=== PATIENT | female | born 1940 | race Caucasian/White ===

== ENCOUNTER 2017-12-10 13:48 | Inpatient (IN) | payer OTHER ==
[~2017-12-10] VITALS: Ht 149.9 cm; Wt 56.7 kg
[~2017-12-10 13:48] MED LIST: ALLEGRA ALLERG180 MG; AMBIEN 10 MG TA10 MG; AMBIEN 10 MG TA10 MG PO; ASPIRIN EC81 M1 PO; BENTYL 10 MG CA10 MG PO; CALCIUM; CALCIUM 500 +1 EAC5 PO; CARVEDILOL3.125 MG PO; CEFTIN 250 MG250 MG PO; DESYREL50 MG; DESYREL50 MG PO; FENOFIBRATE160 MG; FENOFIBRATE160 MG PO; FISH OIL 1,0001 EAC5 PO; FISHOIL; GABAPENTIN100 MG; GABAPENTIN100 MG PO; GLUCOPHAGE XR500 MG; HYDROCODON-ACE1 EAC7 PO; IRON325 PO; LASIX 40 MG TAB40 M1 PO; LISINOPRIL10 MG PO; LISINOPRIL2.5 MG PO; LISINOPRIL5 MG PO; METOPROLOL SUCC25 M1; MINIPRIN81 MG; MOBIC15 MG; NITROSTAT0.4 MG SL; NORCO 5-325 TA1 EACH; OMEPRAZOLE20 M2; OXYCODONE HCL-1 EAC1; PLAVIX 75 MG TA75 M1 PO; PRISTIQ100 MG PO; PRISTIQ50 MG; PROTONIX40 M2 PO; RANEXA500 MG PO; REMIFEMIN; TRAZODONE HCL100 MG PO; VITAMIN B-12100 MC1; ZOCOR 10 MG TAB10 MG; ZOCOR 10 MG TAB10 MG PO; ZYPREXA5 MG PO
[2017-12-10 14:07] VITALS: BP 184/60
[2017-12-10] MEDS ORDERED: MINOCIN100 MG PO (14:12)
[2017-12-10] MEDS ORDERED: NORVASC5 MG PO (14:20)
[2017-12-10] MEDS ORDERED: LASIX 20 MG TAB20 MG PO (14:23)
[2017-12-10] MEDS ORDERED: POTASSIUM20 PO (14:25)
[2017-12-10] MEDS ORDERED: NAPROSYN500 MG PO (14:26)
[2017-12-10] MEDS ORDERED: MUPIROCIN22 GM TOP (14:27)
[2017-12-10] MEDS ORDERED: MAGOX 400400 MG PO (14:29)
[2017-12-10 14:40] LABS: ABSOLUTE EOSINOPHILS 0.2 thou/uL (0.0-0.7); ABSOLUTE LYMPHOCYTES 1.7 thou/uL (0.8-5.3); ABSOLUTE MONOCYTES 0.4 thou/uL (0.0-1.2); ABSOLUTE NEUTROPHILS 2.1 thou/uL (1.6-8.1); EOSINOPHILS 3.5 %; HEMATOCRIT 33.5 % (37.0-47.0); HEMOGLOBIN 11.4 gm/dL (12.0-15.0); LYMPHOCYTES 38.6 %; MCH 32.7 pg (26.0-34.0); MPV 8.5 fl. (7.2-11.1); NUCLEATED RBCS 0 /100WBC; PLATELET COUNT* 186 thou/uL (150-400); POLYS 47.9 %; RBC 3.49 mil/uL (4.20-5.00); RDW-CV 13.9 % (10.5-14.5); WBC 4.4 thou/uL (4.0-11.0)
[2017-12-10 14:44] LABS: URINE BILIRUBIN NEGATIVE (Negative); URINE BLOOD TRACE (Negative); URINE CLARITY CLEAR; URINE COLOR YELLOW; URINE GLUCOSE-RANDOM NEGATIVE (Negative); URINE KETONES NEGATIVE (Negative); URINE LEUKOCYTES 3+ (Negative); URINE NITRITE POSITIVE (Negative); URINE PROTEIN NEGATIVE (Negative); URINE UROBILINOGEN 0.2 E.U./dl (0.2-1.0)
[2017-12-10 14:52] LABS: BACTERIA >30 Many /HPF (None Seen); CASTS None Seen /LPF (None Seen); CRYSTALS None Seen /LPF (None Seen); SQUAMOUS 0-3 Few /LPF (0-3); URINE RBC None Seen /HPF (0-2); URINE WBC >25 Many /HPF (0-5)
[2017-12-10 14:53] LABS: CALCIUM 8.9 mg/dL (8.5-10.1); CREATININE 1.6 mg/dL (0.6-1.3); POTASSIUM 4.4 mmol/L (3.5-5.1)
[2017-12-10 14:57] LABS: ALBUMIN 2.9 g/dL (3.4-5.0); TOTAL BILIRUBIN 0.7 mg/dL (<0.1-1.0); TOTAL PROTEIN 6.4 g/dL (6.4-8.2)
[2017-12-10 15:29] VITALS: BP 160/40
[2017-12-10 16:48] VITALS: BP 177/71
--- NOTE | 2017-12-10 18:00 | NUR ---
PATIENT ADMITTED TO ROOM 214 FROM ER. ALERT AND ORIENTED 4. BLE'S RED/SWOLLEN. WOUND CARE CONS. IV ABX INFUSING PER ORDERS. PHOTOS TAKEN OF BLE'S AND REDDENDED AREA TO BUTTOCKS PER PROTOCOL. FALL RISK PROTOCOL IN PLACE. CALL LIGHT WITHIN REACH, WILL CONTINUE TO MONITOR.
[2017-12-10 19:58] VITALS: BP 172/64
[2017-12-10 23:45] VITALS: BP 112/49
--- NOTE | 2017-12-11 05:16 | NUR ---
AAOX4, PT DENIES C/O PAIN SOB OR DISCOMFORT. RESP REG AND UNLABORED SKIN W/D NOTED, NO ACUTE DISTRESS NOTED. VSS AND NO ACUTE CHANGES DURING SHIFT. PT CONTINUE TO HAVE FREQUENCY OF URINATION BUT HAS IMPROVED DURING SHIFT.. WILL CONTINUE TO MONITOR
[2017-12-11 07:30] VITALS: BP 172/66
--- NOTE | 2017-12-11 12:28 | NUR ---
WOUND CARE NOTE: CONSULT RECEIVED FOR BLE CELLULITIS, R. BUTTOCK WOUND. PATIENT STATES WOUND TO BUTTOCK COMES AND GOES. SHE STATES SHE WAS TOLD IT WAS FROM SITTING TOO MUCH. DRY, FLAKEY AREA NOTED TO THE RIGHT BUTTOCK, BUT IT IS INTACT, APPEARS TO BE HEALED. SACROCOCCYGEAL REGION IS RED, DRY, BLANCHABLE. PATIENT WEARS DEPENDS AT HOME AND IS CURRENTLY WEARING A BRIEF. APPLIED BARRIER OINTMENT. PATIENT PRESENTS WITH REDNESS CIRCUMFIRENTIALLY TO BILATERAL LOWER EXTREMITIES JUST SUPERIOR TO THE GAITER AREA. NO BLISTERS OR WOUNDS NOTED. AREA IS NOT HOT TO TOUCH. STATES SHE HAS BEEN DEALING WITH THIS FOR A MONTH. PATIENT DOES HAVE WHAT APPEARS TO BE PETECHIAL TYPE RASH TO TOES, BILATERALLY. APPLIED LOTION TO LEGS. APPLIED DOUBLE LAYER TUBIGRIP SIZE E BILATERALLY. PATIENT TOLERATED DRESSING CHANGES WELL. EDUCATED PATIENT ON NOT USING BRIEFS TO ASSIST WITH RESOLVING REDNESS, COMMUNICATED UNDERSTANDING, BUT CONTINUES TO WEAR BRIEFS. EDUCATED PATIENT ON USING BARRIER OINTMENT AFTER USING BATHROOM, COMMUNICATED UNDERSTANDING, ALLOWED ME TO PLACE SOME. EDUCATED PATIENT ON COMPRESSION THERAPY, AND WHEN TO NOTIFY NURSE IF THEY ARE TOO TIGHT. EDUCATED PATIENT TO KEEP LEGS ELEVATED TO ASSIST WITH DECREASING SWELLING, COMMUNICATED UNDERSTANDING. RECOMMEND ELEVATE BLE COMPRESSION THERAPY ENCOURAGE GOOD NUTRITION/HYDRATION SMOKING CESSATION TIGHT BLOOD GLUCOSE CONTROL
--- NOTE | 2017-12-11 14:19 | NUR ---
INITIAL ASSESSMENT: Pt evaluated for d/c planning needs. Reviewed chart and spoke with nurse and pt. Pt is alert and oriented. Pt lives in independent apartment at the [facility]. Pt was independent with ADL's and used walker for ambulation. Pt goes to central dining room for her meals. Pt said she has not had home health in the past. Pt plans on returning home on d/c from hospital. Will remain available to assist as needed.
[2017-12-11 15:48] VITALS: BP 150/47
--- NOTE | 2017-12-11 16:17 | NUR ---
PATIENT PLACED IN CONTACT PRECAUTIONS D/T POSITIVE MRSA NARES TEST AT DERMATOLOGY OFFICE. NO COMPLAINTS OF PAIN. UP TO CHAIR WITH ASSISTANCE FOR MEALS. IV SL, SCHED ABX INFUSED. DR. MCCULLOUGH PLACED PATIENT BACK ON IV VANCOMYCIN AND PO BACTRIM. PATIENTS SON BROUGHT IN PATIENTS HOME PRISTIQ, CHECKED WITH PHARMACY. PATIENT INCONTINENT AT TIMES TODAY OTHERWISE VOIDING PER TOILET. WOUND NURSE SAW PATIENT, TUBAGRIPS PLACED TO RINA LE'S.
[2017-12-11 19:40] VITALS: BP 161/60
[2017-12-12 03:42] VITALS: BP 134/54
--- NOTE | 2017-12-12 05:27 | NUR ---
AAX4 RESP REG AND UNLABORED SKIN W/D NO ACUTE DISTRESS NOTED. PT STATED SHE WAS FEELING SOME BETTER. PT NOT HAVING MUCH URGENCY THIS SHIFT. PT STATED SHE THINGS SHE IS GETTING BETTER. VSS AND NO ACUTE CHANGES DURING SHIFT WILL CONTINUE TO MONITOR
[2017-12-12 08:15] VITALS: BP 189/66
--- NOTE | 2017-12-12 08:35 | NUR ---
ASSUMED PT. CARE AND RECEIVED REPORT AT 0730. PT A/OX WITH SOME MINOR CONFUSION NOTED. VSS, MED/SURG STATUS. ON RA @ 93% WITH CRACKLES NOTED THROUGH OUT. PT. DENIES SOB OR DIFFICULTY BREATHING. FULL ASSESSMENT COMPLETETED, REFER TO CHARTING. PT. UP TO VOID, HOWEVER WAS FULLY INCONT. IN BRIEF PRIOR TO BSC. UP TO CHAIR THERE AFTER, CALL LIGHT AND FALL PRECAUTIONS IN PLACE. WILL CONTINUE WITH PLAN OF CARE.
[2017-12-12 10:30] LABS: ABSOLUTE EOSINOPHILS 0.2 thou/uL (0.0-0.7); ABSOLUTE LYMPHOCYTES 1.3 thou/uL (0.8-5.3); ABSOLUTE MONOCYTES 0.4 thou/uL (0.0-1.2); ABSOLUTE NEUTROPHILS 2.9 thou/uL (1.6-8.1); BASOPHILS 0.9 %; EOSINOPHILS 3.7 %; HEMATOCRIT 34.8 % (37.0-47.0); HEMOGLOBIN 11.8 gm/dL (12.0-15.0); LYMPHOCYTES 27.2 %; MCH 32.5 pg (26.0-34.0); MCHC 33.8 g/dL (28.0-37.0); MCV 96.1 fL (80.0-100.0); MONOCYTES 8.5 %; MPV 8.7 fl. (7.2-11.1); NUCLEATED RBCS 0 /100WBC; PLATELET COUNT* 163 thou/uL (150-400); POLYS 59.7 %; RBC 3.62 mil/uL (4.20-5.00); RDW-CV 13.8 % (10.5-14.5); WBC 4.8 thou/uL (4.0-11.0)
[2017-12-12 10:38] LABS: CALCIUM 8.8 mg/dL (8.5-10.1); CREATININE 1.5 mg/dL (0.6-1.3); POTASSIUM 4.2 mmol/L (3.5-5.1)
[2017-12-12 15:51] VITALS: BP 138/33
--- NOTE | 2017-12-12 18:36 | NUR ---
PT. STABLE THROUGH OUT SHIFT. UP IN THE RECLINER GOOD PORTION OF THE DAY. TUBIGRIP REMOVED AND CARE GIVEN PER ORDERS. PT. STATES SHE FEELS THE SWELLING AND REDNESS HAS IMPROVED GREATLY. NO C/O PAIN. PT. DOES GET CONFUSED AT TIMES, AND DOES NOT ALWAYS USE CALL LIGHT APPROPRIATELY. HOURLY ROUNDING COMPLETED THROUGH OUT THE DAY FOR PT. SAFETY.
[2017-12-12 19:25] VITALS: BP 162/71
[2017-12-12 22:42] VITALS: BP 132/53
--- NOTE | 2017-12-13 04:48 | NUR ---
PT AAOX4, DRE CUTE DISTRESS NOTED. RESP REG AND UNALBORED SKIN W/D, NO C/O PAINOR DISCOMFORT. DRESSINGS TOLEGS INTACT. PT SAT IN CHIAR THE FIRST PART OF SHIFT AND TOLERATED WELL. VSS AND NO ACUTE CHANGES DURING SHIFT, WILL CONTINUE TO MONITOR
[2017-12-13 08:42] VITALS: BP 154/62
--- NOTE | 2017-12-13 08:43 | NUR ---
ASSUMED PT. CARE AND RECEIVED REPORT AT 0730. PT A/OX4 WITH SOME NOTED CONFUSION, VSS, PT. MED/SURG STATUS. ON RA @ 94%. RINA. LE TUBIGRIP IN PLACE. FULL ASSESSMENT COMPLETED, REFER TO CHARTING. PT. DENIES PAIN, BUT STATES HER STOMACH ACHES. PT. ASSISTED TO BATHROOM-INCONT- AND THEN TO CHAIR FOR BREAKFAST. CALL LIGHT IN REACH, FALL PRECAUTIONS IN PLACE. WILL CONTINUE WITH PLAN OF CARE.
[2017-12-13] MEDS ORDERED: MINOCIN100 MG PO (12:45)
[2017-12-13 13:46] VITALS: BP 154/62
--- NOTE | 2017-12-13 14:32 | NUR ---
DC ORDERS RECEIVED. IV AND MONITOR REMOVED. DC INSTRUCTIONS, SCRIPTS AND CARENOTES DISUCUSSED WITH PT. AND SON. SCRIPT FAXED TO PATIENTS PHARMACY PER FAMILY REQUEST. ALL QUESTIONS ANSWERED. PT. LEFT VIA WHEELCHAIR TO RETURN HOME IN PERSONAL VEHICLE.
--- NOTE | 2017-12-14 07:52 | CON ---
[address] [address] CONSULTATION Name: BETITOSHAZIA Hermilo Room: [address] IN M.R.#: [id number] Admission: 12/10/17 Attend Phys: Francis Chen Discharge: 12/13/17 Date of : 40 Report #: [id number] THIS REPORT FOR: //name// CC: Zenaida Sherwood DATE OF SERVICE: 12/11/2017 INFECTIOUS DISEASE CONSULTATION ATTENDING PHYSICIAN: Sandoval Sherwood DO. REASON FOR EVALUATION: Bilateral lower extremity inflammatory eruptions, possible component of skin and soft tissue infection with cellulitis. HISTORY OF PRESENT ILLNESS: Chart reviewed, the patient examined. The patient is a 77-year-old white female with a known vasculopathy, has fairly significant medical disease, history of diabetes mellitus who developed a red rash, though primarily more pruritic than painful over the bilateral lower extremities in the last couple of months. She did have episodic multiple bullous lesions, drained serous type fluid by her description. She was seen by Dermatology who felt that there was an infectious component, was treated with antibiotics initially, seemed to have improved briefly. She has had 3 courses, the latter two have not been particularly effective from her standpoint. She was referred for admission for parenteral therapy. Denies fever. Appetite has been good. No pulmonary or gastrointestinal related complaints. ALLERGIES: LISTED TO WOOL, PENICILLIN, OXYCODONE, CODEINE AND CIPROFLOXACIN. CURRENT MEDICATIONS: Include magnesium, amlodipine, lisinopril, clopidogrel, fenofibrate, aspirin, gabapentin, minocycline, trazodone, metolazone, carvedilol, dicyclomine, atorvastatin, doxycycline, naproxen and furosemide. PAST MEDICAL HISTORY: History of diabetes mellitus, has vasculopathy, known coronary artery disease, previous stentings, hypercholesterolemia, history of hypertension, multiple surgeries including appendectomy, hysterectomy, cholecystectomy, breast augmentation, liposuction, blepharoplasty. SOCIAL HISTORY: History of smoking, now most recently e-cigarettes. Occasional ethanol. FAMILY HISTORY: Noncontributory. REVIEW OF SYSTEMS: As above. PHYSICAL EXAMINATION: [place] [address] CONSULTATION Name: SHAZIA CISSE Room: [address]#: [id number] Admission: 12/10/17 Attend Phys: Francis Chen Discharge: 12/13/17 Date of : 40 Report #: [id number] GENERAL: She is pleasant, alert, cooperative. She appears somewhat chronically ill, undernourished. She is in mild distress. VITAL SIGNS: Temperature 97.8, pulse 59, respirations 16, blood pressure 172/66. SKIN: Warm, dry, no rashes. HEENT: Unremarkable. NECK: Supple. LUNGS: Somewhat diminished overall. He has got some crackles at the bases. HEART: Regular. Borderline bradycardic, has a soft systolic murmur. ABDOMEN: Soft, nontender. EXTREMITIES: Bilateral lower extremities have changes suggestive of chronic venous stasis insufficiency with dermatitis with some dermopathy that may be the basis of ischemia as well. Distal pulses are diminished, somewhat of doughy edema at this point. There are no open ulcers. She is not overtly tender. GENITOURINARY: Deferred. RECTAL: Deferred. LABORATORY DATA: Blood cultures sterile thus far. Lactic acid 1.0. Electrolytes: Sodium 132, potassium 4.4, chloride 100, bicarbonate is 28, BUN and creatinine 33 and 1.6, anion gap of 4, glucose of 105. LFTs are unremarkable. Albumin of 2.9, total protein 6.4. Estimated GFR of 31. Urinalysis, greater than 25 white cells, greater than 30 bacteria. Chest x-ray, no acute process. CBC: White count of 4.4, H and H 11.4 and 33.5, platelets of 186. ASSESSMENT: Bilateral lower extremities inflammatory eruption. This may well be primarily venous stasis insufficiency, I cannot entirely exclude arterial disease as well. We will check arterial Dopplers, discuss with wound care nurse, we will apply some compression, was encouraged to elevate, we will see if she develops any claudication with that. She does appear to have a urinary tract infection, we will adjust therapy, had been on minocycline most recently. <ELECTRONICALLY SIGNED> By: Julián Landa MD 12/14/17 0752 [id number] [id number] Landa MD /nt
== END 2017-12-13 14:32 | disposition home or self-care (01) | DRG 602 ==
LOC: M.ERS 13:48 → M.TBA-ER 14:12 → M.2W 14:12
PROVIDERS: Emergency Medicine; Internal Medicine Infectious Disease; ADMIT Internal Medicine
DX: L03.115 Cellulitis of right lower limb (principal); N17.0 Acute kidney failure with tubular necrosis; N39.0 Urinary tract infection, site not specified; E44.0 Moderate protein-calorie malnutrition; I25.10 Atherosclerotic heart disease of native coronary artery without angina pectoris; E11.51 Type 2 diabetes mellitus with diabetic peripheral angiopathy without gangrene; I25.5 Ischemic cardiomyopathy; E78.00 Pure hypercholesterolemia, unspecified; F32.9 Major depressive disorder, single episode, unspecified; F17.210 Nicotine dependence, cigarettes, uncomplicated; I87.8 Other specified disorders of veins; Z88.6 Allergy status to analgesic agent; Z88.1 Allergy status to other antibiotic agents; Z88.0 Allergy status to penicillin; Z91.048 Other nonmedicinal substance allergy status; Z79.2 Long term (current) use of antibiotics; Z79.82 Long term (current) use of aspirin; Z79.899 Other long term (current) drug therapy; Z95.5 Presence of coronary angioplasty implant and graft; Z90.49 Acquired absence of other specified parts of digestive tract; Z90.710 Acquired absence of both cervix and uterus

== ENCOUNTER 2017-12-25 18:29 | Inpatient (IN) | payer OTHER ==
[~2017-12-25] VITALS: Ht 149.9 cm; Wt 67.0 kg
[~2017-12-25 18:29] MED LIST changes: +LASIX 20 MG TAB20 MG PO; +MAGOX 400400 MG PO; +MINOCIN100 MG PO; +MUPIROCIN22 GM TOP; +NAPROSYN500 MG PO; +NORVASC5 MG PO; +POTASSIUM20 PO
[2017-12-25 18:43] VITALS: BP 128/49
[2017-12-25 18:55] LABS: ABSOLUTE LYMPHOCYTES 1.4 thou/uL (0.8-5.3); ABSOLUTE MONOCYTES 0.4 thou/uL (0.0-1.2); ABSOLUTE NEUTROPHILS 5.5 thou/uL (1.6-8.1); BASOPHILS 0.5 %; EOSINOPHILS 0.2 %; HEMATOCRIT 35.5 % (37.0-47.0); HEMOGLOBIN 11.8 gm/dL (12.0-15.0); LYMPHOCYTES 18.8 %; MCH 31.8 pg (26.0-34.0); MCHC 33.2 g/dL (28.0-37.0); MCV 95.7 fL (80.0-100.0); MONOCYTES 5.3 %; MPV 10.7 fl. (7.2-11.1); NUCLEATED RBCS 1 /100WBC; PLATELET COUNT* 77 thou/uL (150-400); POLYS 75.2 %; RBC 3.71 mil/uL (4.20-5.00); RDW-CV 14.6 % (10.5-14.5); WBC 7.4 thou/uL (4.0-11.0)
[2017-12-25 19:07] LABS: INR 1.4; PROTIME 13.3 Seconds (9.20-11.50)
[2017-12-25 19:09] LABS: ANION GAP 8 mmol/L (7-16); BUN 41 mg/dL (7-18); CALCIUM 9.3 mg/dL (8.5-10.1); CHLORIDE 100 mmol/L (98-107); CO2 26 mmol/L (21-32); CREATININE 2.7 mg/dL (0.6-1.3); GLUCOSE 106 mg/dL (70-99); POTASSIUM 5.6 mmol/L (3.5-5.1); SODIUM 134 mmol/L (136-145)
[2017-12-25 19:20] LABS: ALBUMIN 2.9 g/dL (3.4-5.0); ALKALINE PHOSPHATASE 125 U/L (46-116); LIPASE 108 U/L (73-393); MAGNESIUM 2.5 mg/dL (1.8-2.4); NT-PRO BRAIN NAT PEPTIDE 1779 pg/mL (<300); SGOT 289 U/L (15-37); SGPT 137 U/L (30-65); TOTAL BILIRUBIN 3.8 mg/dL (<0.1-1.0); TOTAL PROTEIN 6.4 g/dL (6.4-8.2); TROPONIN-I LEVEL <0.06 ng/mL (<0.06)
[2017-12-25 20:31] LABS: CALCIUM 9.2 mg/dL (8.5-10.1); CREATININE 2.6 mg/dL (0.6-1.3); POTASSIUM 5.7 mmol/L (3.5-5.1)
[2017-12-25 20:35] LABS: ALBUMIN 2.3 g/dL (3.4-5.0); TOTAL BILIRUBIN 3.8 mg/dL (<0.1-1.0); TOTAL PROTEIN 6.2 g/dL (6.4-8.2)
[2017-12-25 22:12] VITALS: BP 147/60
[2017-12-25 22:30] VITALS: BP 147/72
[2017-12-25 23:00] VITALS: BP 117/40
[2017-12-25 23:04] LABS: URINE BLOOD 2+ (Negative); URINE CLARITY CLEAR; URINE COLOR DARK YELLOW; URINE GLUCOSE-RANDOM NEGATIVE (Negative); URINE KETONES NEGATIVE (Negative); URINE LEUKOCYTES-REFLEX TRACE (Negative); URINE PROTEIN TRACE (Negative); URINE UROBILINOGEN 0.2 E.U./dl (0.2-1.0)
[2017-12-25 23:06] LABS: ICTOTEST (BILI CONFIRMATORY) Negative (Negative); URINE BILIRUBIN 1+ (Negative); URINE NITRITE-REFLEX POSITIVE (Negative)
[2017-12-25 23:29] LABS: CASTS None Seen /LPF (None Seen); SQUAMOUS 0-3 Few /LPF (0-3)
[2017-12-25 23:30] LABS: BACTERIA-REFLEX 1-9 Few /HPF (None Seen); CRYSTALS None Seen /LPF (None Seen); URINE RBC 3-10 Few /HPF (0-2); URINE WBC-REFLEX 6-15 Few /HPF (0-5)
[2017-12-26] VITALS (14 sets, daily range): BP systolic 98–135; BP diastolic 20–58
[2017-12-26 01:56] LABS: ALBUMIN 1.9 g/dL (3.4-5.0); CALCIUM 9.2 mg/dL (8.5-10.1); CREATININE 2.5 mg/dL (0.6-1.3); TOTAL BILIRUBIN 2.8 mg/dL (<0.1-1.0); TOTAL PROTEIN 5.3 g/dL (6.4-8.2)
[2017-12-26 01:59] LABS: POTASSIUM 4.4 mmol/L (3.5-5.1)
[2017-12-26 07:49] LABS: HEMATOCRIT 33.3 % (37.0-47.0); HEMOGLOBIN 11.2 gm/dL (12.0-15.0); MCH 32.5 pg (26.0-34.0); MCHC 33.7 g/dL (28.0-37.0); MCV 96.3 fL (80.0-100.0); RBC 3.45 mil/uL (4.20-5.00); RDW-CV 14.2 % (10.5-14.5); WBC 6.5 thou/uL (4.0-11.0)
[2017-12-26 09:00] LABS: ALBUMIN 2.5 g/dL (3.4-5.0); CALCIUM 9.3 mg/dL (8.5-10.1); CREATININE 2.2 mg/dL (0.6-1.3); POTASSIUM 4.8 mmol/L (3.5-5.1); TOTAL PROTEIN 5.4 g/dL (6.4-8.2)
--- NOTE | 2017-12-26 11:13 | EKG ---
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 RBBB Borderline prolonged KS interval Consider left atrial enlargement Nonspecific intraventricular conduction delay Inferior infarct, age indeterminate possibly acute. Compared to ECG 07/14/2015 09:11:04 Intraventricular conduction delay now present Ventricular premature complex(es) no longer present Myocardial infarct finding still present Electronically Signed On 12-26-2017 11:12:56 CDT by Mauri Almonte [email or web address] <ELECTRONICALLY SIGNED> By: Gely Almonte MD, [facility] 12/26/17 [phone] Gely Almonte MD, [facility] /EPI
[2017-12-27] VITALS (7 sets, daily range): BP systolic 95–143; BP diastolic 28–53
[2017-12-27 02:06] LABS: IgG 903 mg/dL (700-1600)
[2017-12-27 04:42] LABS: ABSOLUTE EOSINOPHILS 0.1 thou/uL (0.0-0.7); ABSOLUTE LYMPHOCYTES 1.2 thou/uL (0.8-5.3); ABSOLUTE MONOCYTES 0.5 thou/uL (0.0-1.2); ABSOLUTE NEUTROPHILS 4.3 thou/uL (1.6-8.1); BASOPHILS 0.4 %; EOSINOPHILS 2.3 %; HEMATOCRIT 30.8 % (37.0-47.0); HEMOGLOBIN 10.2 gm/dL (12.0-15.0); LYMPHOCYTES 19.3 %; MCH 32.1 pg (26.0-34.0); MCHC 33.2 g/dL (28.0-37.0); MCV 96.5 fL (80.0-100.0); MONOCYTES 8.1 %; MPV 11.1 fl. (7.2-11.1); NUCLEATED RBCS 1 /100WBC; PLATELET COUNT* 50 thou/uL (150-400); POLYS 69.9 %; RBC 3.19 mil/uL (4.20-5.00); RDW-CV 14.1 % (10.5-14.5); WBC 6.1 thou/uL (4.0-11.0)
[2017-12-27 05:03] LABS: INR 1.6; PROTIME 15.7 Seconds (9.20-11.50)
[2017-12-27 05:16] LABS: PREALBUMIN 10.9 mg/dL (18.0-35.7)
[2017-12-27 05:26] LABS: ALBUMIN 2.3 g/dL (3.4-5.0); CALCIUM 8.4 mg/dL (8.5-10.1); CREATININE 1.9 mg/dL (0.6-1.3); DIRECT BILIRUBIN 3.1 mg/dL (<0.1-0.3); POTASSIUM 4.5 mmol/L (3.5-5.1); TOTAL BILIRUBIN 3.8 mg/dL (<0.1-1.0); TOTAL PROTEIN 4.9 g/dL (6.4-8.2)
--- NOTE | 2017-12-27 10:38 | EKG ---
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: KATEY : 1940 Requested By: David Gruber Order Number: [id number] Reading MD: Mauri Almonte Measurements Intervals [place] Rate: 64 P: 64 DE: 202 QRS: 33 QRSD: 163 T: -75 QT: 447 QTc: 462 Interpretive Statements Sinus rhythm IVCD Borderline T abnormalities, lateral leads Compared to ECG 12/25/2017 18:33:35 T-wave abnormality now present Right bundle-branch block no longer present Myocardial infarct finding no longer present Electronically Signed On 12-27-2017 10:37:50 CDT by Mauri Almonte [email or web address] <ELECTRONICALLY SIGNED> By: Gely Almonte MD, [facility] 12/27/17 1037 2239 [id number] Gely Almonte MD, [facility] /EPI
--- NOTE | 2017-12-27 13:19 | CON ---
[address] [address] CONSULTATION Name: SHAZIA CISSE Room: [address] IN .R.#: [id number] Admission: 12/25/17 Attend Phys: Francis Chen Discharge: Date of : 40 Report #: [id number] THIS REPORT FOR: //name// CC: Zenaida Sherwood DATE OF SERVICE: 12/26/2017 Renal Consultation Thank you very much asking to see the patient. HISTORY OF PRESENT ILLNESS: The patient is a 77-year-old white female who was admitted to [facility] after falling several times at home. Case was complicated by nausea. She had no fevers or chills. No chest pains or shortness of breath. No vomiting. She has a Vazquez catheter in place. Renal consultation requested for the constellation of combination of hyponatremia and acute kidney injury. PAST MEDICAL HISTORY: 1. Chronic kidney disease stage 3, baseline creatinine 1.1, GFR 49. 2. Hypertension. 3. Diabetes. 4. Hyperlipidemia. 5. Cardiomyopathy with ejection fraction of 35% to 40%. 6. Coronary artery disease with history of stent placement. ALLERGIES: She has allergies to CIPRO, CODEINE, PENICILLIN, WOOL, and OXYCODONE. SOCIAL HISTORY: Negative for tobacco use or alcohol use. FAMILY HISTORY: Negative for kidney disease. CURRENT MEDICATIONS: Trazodone 50 mg at bedtime, olanzapine 5 mg at bedtime, gabapentin 200 mg t.i.d., Ranexa 500 mg b.i.d., dicyclomine 100 mg b.i.d., fenofibrate 160 mg daily, desvenlafaxine 50 mg daily, magnesium 400 mg daily, amlodipine 5 mg daily, lisinopril 5 mg daily, carvedilol 6.25 mg b.i.d., Plavix 75 mg daily, aspirin 81 mg daily, metoclopramide 5 mg as needed. PHYSICAL EXAMINATION: VITAL SIGNS: Blood pressure is 102/45, pulse 68, temperature 36.5. GENERAL: She is awake and alert. Mood and affect appear to be at baseline. NECK: No jugular venous distention. CHEST: Clear. HEART: Regular rate [place] [address] CONSULTATION Name: SHAZIA CISSE Room: [address]#: [id number] Admission: 12/25/17 Attend Phys: Francis Chen Discharge: Date of : 40 Report #: [id number] ABDOMEN: Soft. EXTREMITIES: She has 1 to 2+ lower extremity edema. LABORATORY DATA: Initial sodium was 134. It came down to 129, but now back up to 136, creatinine is 2.2. IMAGING DATA: On CT scan, the right kidney was atrophic. ASSESSMENT AND PLAN: 1. Acute kidney injury. Her creatinine is improved from 2.7 to 2.2 on IV fluids. 2. Hyponatremia. Her sodium level has improved from 129 to 136 on IV fluids. 3. Atrophic right kidney. 4. Hypertension. 5. Diabetes. 6. Hyperlipidemia. 7. Elevated transaminases. Etiology is unclear. 8. Cardiomyopathy with ejection fraction of 35% to 40%. 9. History of coronary artery disease and stent placement. 10. Cellulitis of the lower extremities. PLAN: 1. Continue IV fluids. 2. Await renal ultrasound. 3. Await urine studies. 4. Further recommendations will depend on clinical course. Thank you very much for asking me to see the patient and assist in her care. <ELECTRONICALLY SIGNED> By: Suhas Seymour MD 12/27/17 1319 1351 [id number] Seymour MD /nt
[2017-12-28] VITALS: BP 101/39
[2017-12-28 04:00] VITALS: BP 159/90
[2017-12-28 05:08] LABS: HEMATOCRIT 28.4 % (37.0-47.0); HEMOGLOBIN 9.4 gm/dL (12.0-15.0); MCH 32.2 pg (26.0-34.0); MCV 97.6 fL (80.0-100.0); MPV 11.1 fl. (7.2-11.1); RBC 2.91 mil/uL (4.20-5.00); RDW-CV 14.1 % (10.5-14.5); WBC 6.1 thou/uL (4.0-11.0)
[2017-12-28 05:17] LABS: CALCIUM 8.1 mg/dL (8.5-10.1); MAGNESIUM 2.2 mg/dL (1.8-2.4)
[2017-12-28 08:00] VITALS: BP 131/44
[2017-12-28 11:40] VITALS: BP 104/50
[2017-12-28 16:18] VITALS: BP 113/44
[2017-12-28 20:00] VITALS: BP 114/78; BP 133/51
[2017-12-29] VITALS: BP 118/31
[2017-12-29 00:10] VITALS: BP 142/41
[2017-12-29 05:56] LABS: ALBUMIN 1.9 g/dL (3.4-5.0); CALCIUM 7.7 mg/dL (8.5-10.1); CREATININE 1.6 mg/dL (0.6-1.3); MAGNESIUM 2.5 mg/dL (1.8-2.4); PHOSPHORUS* 2.4 mg/dL (2.5-4.9); POTASSIUM 5.2 mmol/L (3.5-5.1)
[2017-12-29 10:08] LABS: ABSOLUTE BASOPHILS 0.1 thou/uL (0.0-0.2); ABSOLUTE EOSINOPHILS 0.1 thou/uL (0.0-0.7); ABSOLUTE LYMPHOCYTES 1.5 thou/uL (0.8-5.3); ABSOLUTE MONOCYTES 0.6 thou/uL (0.0-1.2); ABSOLUTE NEUTROPHILS 5.1 thou/uL (1.6-8.1); BASOPHILS 0.9 %; EOSINOPHILS 1.7 %; HEMATOCRIT 28.9 % (37.0-47.0); HEMOGLOBIN 9.5 gm/dL (12.0-15.0); LYMPHOCYTES 20.8 %; MCHC 32.8 g/dL (28.0-37.0); MCV 97.7 fL (80.0-100.0); MONOCYTES 7.5 %; MPV 12.4 fl. (7.2-11.1); NUCLEATED RBCS 2 /100WBC; POLYS 69.1 %; RBC 2.96 mil/uL (4.20-5.00); RDW-CV 14.4 % (10.5-14.5); WBC 7.4 thou/uL (4.0-11.0)
[2017-12-29 10:23] LABS: PLATELET COUNT* 42 thou/uL (150-400)
[2017-12-29 13:08] LABS: ANA INTERPRETATION Negative (Negative)
--- NOTE | 2017-12-29 15:16 | 2DMMODE ---
[place] [address] 2 D/M-MODE ECHOCARDIOGRAM Name: SHAZIA CISSE Room: [address] IN [facility]#: [id number] Admission: 12/25/17 Attend Phys: Sandoval Sherwood Discharge: Date of : 40 Date of Service: 12/29/17 1516 Report #: [id number] THIS REPORT FOR: //name// APPROVED REPORT Study performed: 12/29/2017 10:29:25 EXAM: Comprehensive 2D, Doppler, and color-flow Echocardiogram Patient Location: In-Patient Room #: 218 Status: routine BSA: 1.62 HR: 65 bpm BP: 147/32 mmHg Rhythm: NSR Other Information Study Quality: Good Indications Abnormal ECG Pacemaker 2D Dimensions LVEF(%): 48.25 (>50%) IVSd: 12.31 (7-11mm) LVOT Diam: 19.96 (18-24mm) LVDd: 44.31 mm PWd: 10.29 (7-11mm) Ascending Ao: 28.54 (22-36mm) LVDs: 33.62 (25-40mm) Aortic Root: 28.74 mm Cheng's LVEF: 48.25 % Volumes Left Atrial Volume (Systole) LA ESV Index: 33.50 mL/m2 Aortic Valve AoV Peak Tee.: 1.84 m/s AO Peak Gr.: 13.49 mmHg LVOT Max P.80 mmHg AO Mean Gr.: 8.21 mmHg LVOT Mean P.53 mmHg LVOT Max V: 0.84 m/s AO V2 VTI: 44.11 cm LVOT Mean V: 0.58 m/s DELANEY (VTI): 1.53 cm2 LVOT V1 VTI: 21.62 cm AI H[place]: 2.79 m/s2 AI PHT: 363.48 [place] [address] 2 D/M-MODE ECHOCARDIOGRAM Name: SHAZIA CISSE Hermilo Room: [address] IN [facility]#: [id number] Admission: 12/25/17 Attend Phys: Sandoval Sherwood Discharge: Date of : 40 Date of Service: 12/29/17 1516 Report #: [id number] Mitral Valve E/A Ratio: 0.95 MV Decel. Time: 128.46 ms MV E Max Tee.: 0.99 m/s MV PHT: 37.25 ms MVA (PHT): 5.91 cm2 TDI E/Lateral E': 11.00 E/Medial E': 9.90 Medial E' Tee.: 0.10 m/s Lateral E' Tee.: 0.09 m/s Pulmonary Valve PV Peak Tee.: 0.75 m/s PV Peak Gr.: 2.22 mmHg Tricuspid Valve RAP Estimate: 5.00 mmHg TR Peak Gr.: 30.25 mmHg RVSP: 35.25 mmHg PA Pressure: 35.25 mmHg Left Ventricle The left ventricle is normal size. There is normal LV segmental wall motion. There is normal left ventricular wall thickness. Left ventricular systolic function is mildly decreased. LVEF is 45-50%. Grade I - abnormal relaxation pattern. Right Ventricle The right ventricle is normal size. The right ventricular systolic function is normal. Pacemaker lead is present in the right ventricle. Atria The left atrium size is normal. The right atrium size is normal. Aortic Valve Moderate aortic valve sclerosis. Mild aortic regurgitation. Mild aortic stenosis. Mitral Valve Mild mitral annular calcification. Mild mitral regurgitation. No evidence of mitral valve stenosis. Tricuspid Valve The tricuspid valve is normal in structure. Mild to moderate tricuspid regurgitation. [place] [address] 2 D/M-MODE ECHOCARDIOGRAM Name: SHAZIA CISSE Room: [address] IN [facility]#: [id number] Admission: 12/25/17 Attend Phys: Sandoval Sherwood Discharge: Date of : 40 Date of Service: 12/29/17 1516 Report #: [id number] Pulmonic Valve The pulmonary valve is normal in structure. There is no pulmonic valvular regurgitation. Great Vessels The aortic root is normal in size. IVC is normal in size and collapses with >50% inspiration Pericardium There is no pericardial effusion. <Conclusion> The left ventricle is normal size. There is normal left ventricular wall thickness. Left ventricular systolic function is mildly decreased. LVEF is 45-50%. Grade I - abnormal relaxation pattern. The right ventricle is normal size. The left atrium size is normal. Moderate aortic valve sclerosis. Mild aortic regurgitation. Mild aortic stenosis. Mild mitral annular calcification. Mild mitral regurgitation. No evidence of mitral valve stenosis. The tricuspid valve is normal in structure. Mild to moderate tricuspid regurgitation. Mild pulmonary hypertension. IVC is normal in size and collapses with >50% inspiration There is no pericardial effusion. There is normal LV segmental wall motion. <ELECTRONICALLY SIGNED> By: Joe Starr MD, FACC 12/29/17 1516 1516 1516 Joe Starr MD, FACC /INF
[2017-12-29 16:27] VITALS: BP 113/69
[2017-12-29 16:35] VITALS: BP 129/50
[2017-12-29 20:00] VITALS: BP 134/43
[2017-12-30] VITALS: BP 142/56
[2017-12-30 04:53] VITALS: BP 121/42
[2017-12-30 05:38] LABS: HEMOGLOBIN 8.6 gm/dL (12.0-15.0); MCH 32.7 pg (26.0-34.0); MCV 98.9 fL (80.0-100.0); MPV 11.8 fl. (7.2-11.1); RBC 2.63 mil/uL (4.20-5.00); RDW-CV 14.6 % (10.5-14.5); WBC 6.7 thou/uL (4.0-11.0)
[2017-12-30 05:53] LABS: INR 1.7; PROTIME 16.4 Seconds (9.20-11.50)
[2017-12-30 06:16] LABS: ALBUMIN 1.7 g/dL (3.4-5.0); CALCIUM 7.6 mg/dL (8.5-10.1); CREATININE 1.5 mg/dL (0.6-1.3); MAGNESIUM 2.3 mg/dL (1.8-2.4); POTASSIUM 5.3 mmol/L (3.5-5.1); TOTAL BILIRUBIN 4.4 mg/dL (<0.1-1.0); TOTAL PROTEIN 4.1 g/dL (6.4-8.2)
[2017-12-30 08:00] VITALS: BP 142/58
[2017-12-30 12:00] VITALS: BP 156/46
[2017-12-30 16:19] VITALS: BP 162/51
[2017-12-30 20:00] VITALS: BP 155/64
[2017-12-31 05:18] LABS: HEMATOCRIT 22.2 % (37.0-47.0); HEMOGLOBIN 7.2 gm/dL (12.0-15.0); MCH 31.9 pg (26.0-34.0); MCHC 32.3 g/dL (28.0-37.0); MCV 98.6 fL (80.0-100.0); MPV 11.6 fl. (7.2-11.1); RBC 2.25 mil/uL (4.20-5.00); RDW-CV 14.2 % (10.5-14.5); WBC 6.6 thou/uL (4.0-11.0)
[2017-12-31 05:38] LABS: ALBUMIN 1.1 g/dL (3.4-5.0); CALCIUM 7.7 mg/dL (8.5-10.1); CREATININE 1.6 mg/dL (0.6-1.3); MAGNESIUM 2.2 mg/dL (1.8-2.4); TOTAL BILIRUBIN 4.1 mg/dL (<0.1-1.0)
[2017-12-31 05:43] LABS: POTASSIUM 5.5 mmol/L (3.5-5.1)
[2017-12-31 15:06] LABS: HEPATITIS B SURFACE AG Negative (Negative)
[2017-12-31 16:35] VITALS: BP 125/44
[2017-12-31 16:56] LABS: URINE BILIRUBIN NEGATIVE (Negative); URINE BLOOD NEGATIVE (Negative); URINE CLARITY CLEAR; URINE COLOR YELLOW; URINE GLUCOSE-RANDOM NEGATIVE (Negative); URINE KETONES NEGATIVE (Negative); URINE LEUKOCYTES 1+ (Negative); URINE NITRITE NEGATIVE (Negative); URINE PROTEIN NEGATIVE (Negative); URINE SPECIFIC GRAVITY 1.015 (1.005-1.030); URINE UROBILINOGEN 0.2 E.U./dl (0.2-1.0)
[2017-12-31 17:11] LABS: HYALINE CASTS 0-3 Few /LPF (None Seen); MUCUS None Seen strn/LPF (None Seen); SQUAMOUS 0-3 Few /LPF (0-3)
[2017-12-31 17:12] LABS: BACTERIA 1-9 Few /HPF (None Seen); CRYSTALS None Seen /LPF (None Seen); URINE RBC None Seen /HPF (0-2); URINE WBC 0-5 Rare /HPF (0-5)
[2017-12-31 20:00] VITALS: BP 124/52
[2018-01-01] VITALS (7 sets, daily range): BP systolic 102–157; BP diastolic 32–72
[2018-01-01 05:51] LABS: HEMATOCRIT 23.3 % (37.0-47.0); HEMOGLOBIN 7.6 gm/dL (12.0-15.0); MCHC 32.5 g/dL (28.0-37.0); MCV 98.5 fL (80.0-100.0); MPV 11.3 fl. (7.2-11.1); RBC 2.37 mil/uL (4.20-5.00); RDW-CV 14.1 % (10.5-14.5); WBC 9.3 thou/uL (4.0-11.0)
[2018-01-01 06:04] LABS: ALBUMIN 1.8 g/dL (3.4-5.0); CALCIUM 7.8 mg/dL (8.5-10.1); CREATININE 1.7 mg/dL (0.6-1.3); MAGNESIUM 1.9 mg/dL (1.8-2.4); PHOSPHORUS* 2.5 mg/dL (2.5-4.9); POTASSIUM 5.5 mmol/L (3.5-5.1); TOTAL BILIRUBIN 4.5 mg/dL (<0.1-1.0); TOTAL PROTEIN 4.8 g/dL (6.4-8.2)
[2018-01-01 08:11] LABS: MPV 11.2 fl. (7.2-11.1); RDW-CV 13.9 % (10.5-14.5); WBC 8.3 thou/uL (4.0-11.0)
[2018-01-01 08:13] LABS: MCH 31.9 pg (26.0-34.0); MCHC 32.7 g/dL (28.0-37.0); MCV 97.7 fL (80.0-100.0); RBC 2.02 mil/uL (4.20-5.00)
[2018-01-01 08:31] LABS: HEMATOCRIT 19.7 % (37.0-47.0); HEMOGLOBIN 6.4 gm/dL (12.0-15.0)
[2018-01-01 10:42] LABS: APTT 41.3 Seconds (25.0-31.3); INR 1.7; PROTIME 16.2 Seconds (9.20-11.50)
[2018-01-01 16:51] LABS: HEMATOCRIT 23.2 % (37.0-47.0); HEMOGLOBIN 7.8 gm/dL (12.0-15.0); MCH 32.2 pg (26.0-34.0); MCHC 33.6 g/dL (28.0-37.0); MCV 95.9 fL (80.0-100.0); MPV 9.5 fl. (7.2-11.1); NUCLEATED RBCS 2 /100WBC; RBC 2.42 mil/uL (4.20-5.00); RDW-CV 13.5 % (10.5-14.5); WBC 7.7 thou/uL (4.0-11.0)
[2018-01-01 16:53] LABS: PLATELET COUNT* 186 thou/uL (150-400)
[2018-01-01 16:55] LABS: CALCIUM 8.3 mg/dL (8.5-10.1); CREATININE 1.8 mg/dL (0.6-1.3); POTASSIUM 4.2 mmol/L (3.5-5.1)
[2018-01-01 16:57] LABS: APTT 32.7 Seconds (25.0-31.3); INR 1.3; PROTIME 13.1 Seconds (9.20-11.50)
[2018-01-01 17:13] LABS: ABSOLUTE BASOPHILS 0.1 thou/uL (0.0-0.2); ABSOLUTE EOSINOPHILS 0.2 thou/uL (0.0-0.7); ABSOLUTE LYMPHOCYTES 0.8 thou/uL (0.8-5.3); ABSOLUTE MONOCYTES 0.8 thou/uL (0.0-1.2); ABSOLUTE NEUTROPHILS 5.9 thou/uL (1.6-8.1); ATYPICAL LYMPHS 2 %; LARGE PLATELETS FEW
[2018-01-01 17:14] LABS: PLATELET ESTIMATE DECREASED; POLYCHROMASIA 1+
[2018-01-01 17:15] LABS: ANISOCYTOSIS 1+; MACROCYTES 1+
[2018-01-02 00:30] VITALS: BP 143/60
[2018-01-02 04:44] VITALS: BP 146/49
[2018-01-02 05:23] LABS: HEMATOCRIT 20.5 % (37.0-47.0); MCH 32.8 pg (26.0-34.0); MCV 96.4 fL (80.0-100.0); MPV 9.6 fl. (7.2-11.1); RBC 2.13 mil/uL (4.20-5.00); RDW-CV 13.6 % (10.5-14.5); WBC 7.7 thou/uL (4.0-11.0)
[2018-01-02 05:46] LABS: CALCIUM 8.1 mg/dL (8.5-10.1); CREATININE 1.8 mg/dL (0.6-1.3); MAGNESIUM 1.8 mg/dL (1.8-2.4); POTASSIUM 3.8 mmol/L (3.5-5.1)
[2018-01-02 09:33] VITALS: BP 143/50
[2018-01-02 15:45] VITALS: BP 148/55
[2018-01-02 20:30] VITALS: BP 149/59
[2018-01-03 00:03] VITALS: BP 119/43
[2018-01-03 03:58] VITALS: BP 146/48
[2018-01-03 04:40] LABS: HEMATOCRIT 20.9 % (37.0-47.0); MCH 32.7 pg (26.0-34.0); MCHC 33.5 g/dL (28.0-37.0); MCV 97.6 fL (80.0-100.0); MPV 9.4 fl. (7.2-11.1); RBC 2.14 mil/uL (4.20-5.00); RDW-CV 13.5 % (10.5-14.5); WBC 6.2 thou/uL (4.0-11.0)
[2018-01-03 05:16] LABS: ALBUMIN 1.9 g/dL (3.4-5.0); CALCIUM 7.8 mg/dL (8.5-10.1); CREATININE 1.7 mg/dL (0.6-1.3); MAGNESIUM 1.7 mg/dL (1.8-2.4); POTASSIUM 3.4 mmol/L (3.5-5.1); TOTAL BILIRUBIN 2.5 mg/dL (<0.1-1.0); TOTAL PROTEIN 4.4 g/dL (6.4-8.2)
[2018-01-03 10:06] VITALS: BP 93/80
[2018-01-03 14:57] LABS: CALCIUM 7.8 mg/dL (8.5-10.1); CREATININE 1.6 mg/dL (0.6-1.3); MAGNESIUM 1.7 mg/dL (1.8-2.4); POTASSIUM 3.7 mmol/L (3.5-5.1)
[2018-01-03 16:05] VITALS: BP 158/56
[2018-01-03 22:00] VITALS: BP 156/65
[2018-01-04 04:00] VITALS: BP 172/50
[2018-01-04 08:00] VITALS: BP 179/72
[2018-01-04 12:13] LABS: HEMATOCRIT 24.2 % (37.0-47.0); HEMOGLOBIN 8.1 gm/dL (12.0-15.0); MCH 33.3 pg (26.0-34.0); MCHC 33.6 g/dL (28.0-37.0); MCV 99.1 fL (80.0-100.0); MPV 8.7 fl. (7.2-11.1); RBC 2.45 mil/uL (4.20-5.00); RDW-CV 13.9 % (10.5-14.5)
[2018-01-04 16:27] VITALS: BP 161/50
[2018-01-05 04:49] LABS: ALBUMIN 1.8 g/dL (3.4-5.0); CALCIUM 7.9 mg/dL (8.5-10.1); CREATININE 1.3 mg/dL (0.6-1.3); POTASSIUM 3.8 mmol/L (3.5-5.1); TOTAL BILIRUBIN 1.8 mg/dL (<0.1-1.0); TOTAL PROTEIN 4.5 g/dL (6.4-8.2)
[2018-01-05 05:55] LABS: HEMATOCRIT 22.3 % (37.0-47.0); HEMOGLOBIN 7.3 gm/dL (12.0-15.0); MCH 32.8 pg (26.0-34.0); MCHC 32.8 g/dL (28.0-37.0); MCV 100.1 fL (80.0-100.0); MPV 9.1 fl. (7.2-11.1); NUCLEATED RBCS 0 /100WBC; PLATELET COUNT* 163 thou/uL (150-400); RBC 2.23 mil/uL (4.20-5.00); RDW-CV 14.2 % (10.5-14.5)
[2018-01-05 06:47] LABS: ABSOLUTE EOSINOPHILS 0.2 thou/uL (0.0-0.7); ABSOLUTE LYMPHOCYTES 1.8 thou/uL (0.8-5.3); ABSOLUTE MONOCYTES 0.2 thou/uL (0.0-1.2); ABSOLUTE NEUTROPHILS 3.7 thou/uL (1.6-8.1); MACROCYTES 1+; MYELOCYTES 1 %; PLATELET ESTIMATE ADEQUATE
[2018-01-05 06:48] LABS: ANISOCYTOSIS 1+; HYPOCHROMASIA 1+; POIKILOCYTOSIS 1+; POLYCHROMASIA Occasional
[2018-01-05] MEDS ORDERED: CEPACOL SORE T1 EAC7 PO (12:14)
[2018-01-05] MEDS ORDERED: BENADRYL25 MG PO (12:15)
[2018-01-05] MEDS ORDERED: MELATIN3 MG PO (12:25)
[2018-01-05] MEDS ORDERED: MILK OF MA2400 MG/10 PO (12:26)
[2018-01-05] MEDS ORDERED: REGLAN 10 MG TA10 MG PO (12:26)
[2018-01-05] MEDS ORDERED: FOLIC ACID1 MG PO (12:28)
[2018-01-05 12:29] VITALS: BP 170/62
--- NOTE | 2018-01-05 12:32 | CON ---
[address] [address] CONSULTATION Name: SHAZIA CISSE Room: [address] IN .R.#: [id number] Admission: 12/25/17 Attend Phys: Francis Chen Discharge: Date of : 40 Report #: [id number] THIS REPORT FOR: //name// CC: Zenaida Sherwood DO DATE OF SERVICE: 12/26/2017 REQUESTING PHYSICIAN: Sandoval Sherwood DO REASON FOR CONSULT: Elevated liver enzymes and bilirubin. HISTORY OF PRESENT ILLNESS: This is a 77-year-old female who was recently discharged from hospital for suspected soft tissue infection and cellulitis of the lower extremities. She was given antibiotics for the same. The patient also has history of receiving minocycline in the recent past. Note that on December 10, the patient's liver enzymes were completely normal. She presents with confusion, elevated liver enzymes and bilirubin of 3. Her INR is also mildly elevated at 1.4 and platelet is 59. The patient is a poor historian and unable to give me much information. She has some circumstantiality and flight of ideas. The remainder of the history was obtained from [facility] from the past. PAST MEDICAL HISTORY: Significant for history of coronary artery disease, diabetes mellitus, dyslipidemia, hypertension, history of appendectomy, hysterectomy and gallbladder disease, status post cholecystectomy. The patient also has had breast augmentation and liposuction in the past: ALLERGIES: Significant to OXYCODONE, CODEINE, CIPRO and PENICILLIN. MEDICATIONS: Please refer to MAR. SOCIAL HISTORY: The patient has remote history of tobaccoism and may occasionally drink. FAMILY HISTORY: Noncontributory. PHYSICAL EXAMINATION: VITAL SIGNS: Reveals blood pressure of 122/51, respirations 12, pulse 62, temperature 97.7. LUNGS: Clear to auscultation bilaterally. CARDIOVASCULAR: Regular rate. ABDOMEN: Soft, nontender, nondistended. Bowel sounds [place] [address] CONSULTATION Name: BETITOSHAZIA A Room: [address] IN [facility].#: [id number] Admission: 12/25/17 Attend Phys: Francis Chen Discharge: Date of : 40 Report #: [id number] no organomegaly. NEUROLOGIC: The patient appears confused and unable to answer questions appropriately. Note that she is on nasal cannula oxygen. LABORATORY DATA: Reveal sodium of 136, potassium 4.8, BUN is 38, creatinine 2.2. Note her baseline on December 10 was 1.6, AST is 298, ALT is 132, alk phos 118. Magnesium is 2.5, total bilirubin is 3 with direct being 0.1, CPK is 419. BNP is 1779. WBC is 6.5 with hemoglobin of 11.2 and platelet of 59. IMAGING: CT of abdomen and pelvis was obtained on admission. This was significant for hepatic steatosis. There are post-surgical changes suggestive of previous cholecystectomy. The bile ducts are not dilated and there is no filling defect noted. The right kidney appears atrophic and the bladder is distended. ASSESSMENT AND PLAN: The patient with acute elevation of liver enzymes and compromised liver function as INR is 1.4, platelet is 59, and bilirubin is 3. This may be due to hepatotoxicity from antibiotics and minocycline. I do not see any reason for this to be a suspect of the biliary obstruction. I will consider abdominal ultrasound to further investigate this. We will also check the patient's ammonia level to see if her confusion is secondary to her acute liver disease. We will continue monitoring the patient's liver enzymes and hepatic function by monitoring PT and INR. <ELECTRONICALLY SIGNED> By: Ria Conteh MD 01/05/18 1232 1101 1959Ria Conteh MD /nt
--- NOTE | 2018-01-11 11:07 | PATH ---
[address] [address] PATHOLOGY RPT PROCEDURE Name: BETITOSHAZIA Hermilo Room: [address] IN .R.#: [id number] Admission: 12/25/17 Date of : 40 Discharge: 01/05/18 Report #: [id number] Path Case #: [id number] LCA Accession Number: [id number] . 01 Material submitted: . LIVER BX . 01 Clinician provided ICD-10: K72.00 N17.0 . 01 Clinical history: . Elevated liver enzymes . 02 Diagnosis: Liver biopsy: - Benign liver with mild acute and chronic portal inflammation and mild acute lobular inflammation suggesting acute liver injury. - Minimal microvesicular steatosis without fibrosis. See comment. LBQ/01/05/2018 . 02 Comment: Liver biopsy shows acute and chronic inflammatory cells within portal tracts associated with mild interface activity as well as scattered neutrophils within the hepatic lobules. Bile ducts are present within the portal tracts and do not appear significantly inflamed. Abundant granular brown pigment seen within hepatocytes is thought most likely to represent lipofuscin. Microgranulomas and Bia's hyaline are not seen. Properly controlled special stains performed on A1 show the following results: . Iron - No significant increase PAS with and without diastase - No hyaline globules Trichrome and reticulin - Hepatic plates intact without fibrosis . The findings suggest acute liver injury possibly related to medication. This case will be forwarded to the [facility] Department of Hepatopathology in consultation and an addendum report will be issued. (LUL/db; 01/05/18) . 02 Addendum: . Special [place] [address], on case [id number], labeled with their number [id number], dated 01/08/2018. . [facility] Pathology Consultation [place] [address] PATHOLOGY RPT PROCEDURE Name: SHAZIA CISSE Room: [address] IN [facility]#: [id number] Admission: 12/25/17 Date of : 40 Discharge: 01/05/18 Report #: [id number] Path Case #: [id number] . Interpretation . FINAL DIAGNOSIS Liver, needle biopsy ([id number]; 01/01/2018): 1. Mild steatohepatitis with mild focal portal fibrosis. 2. 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 (See comment). . COMMENT The liver needle biopsy is adequate with more than ten portal tracts. The portal tracts show mild inflammatory infiltrate composed of predominantly lymphocytes mixed with scattered neutrophils and mild bile ductular proliferation. The hepatic artery, bile duct, and portal vein branches appear to be intact. No noncaseating granulomas are identified. No significant interface activity is identified. The liver parenchyma shows mild (approximately 10% of liver parenchyma) macrovesicular steatosis, hepatocellular ballooning, mild lymphocytic infiltrate, and occasional acidophilic bodies. In some hepatocytes with ballooning change, there is also presence of giant mitochondria. The liver parenchyma also shows prominent dark brown, coarse, granular pigments within the hepatocytes. Trichrome stain demonstrates mild focal portal fibrosis. No hemosiderosis is present on the iron stain. The reticulin stain highlights intact reticulin framework. No cytoplasmic globules are present on the PAS-D stain. [place]-Enrico stain has been performed on the submitted paraffin block. The dark brown, coarse, granular pigments within hepatocytes are weakly positive for Toño-Enrico stain. . This is a 77-year-old female with a history of hypertension, diabetes, and congestive heart failure. She has elevated AST and bilirubin. Her liver function tests on 12/26/2017 showed total bilirubin 3.0, AST 298, ALT 132, and alkaline phosphatase 118 and on 01/01/2018 showed total bilirubin 4.5, ALT 91, and alkaline phosphatase 122. She has negative viral serologies for hepatitis A, B, and C. She has negative AMA, negative ALEX, and negative ASMA. Her serum alpha-1 antitrypsin level is 111, and the serum IgG level is 903 (within normal limits). . The liver biopsy shows mild steatohepatitis with mild focal portal fibrosis. Distinction between alcoholic liver disease (ALD) and nonalcoholic fatty liver disease (NAFLD) cannot be made with certainty based on morphologic evaluation; this requires correlation with the patient's clinical and laboratory data including the patient's gender, mean corpuscular volume (MCV), AST/ALT ratio and body mass index (BMI). An ALD/NAFLD Index (ANI) derived from these objective variables can help to differentiate ALD from NAFLD due to common metabolic disorders (Ladarius Ramirez et al, Utility of a new model to diagnose an alcoholic basis for steatohepatitis. Gastroenterology 2006;131:1057-63). ANI cannot distinguish ALD from uncommon causes of NAFLD such as Anil's disease and drug-induced steatohepatitis (e.g. Amiodarone, Methotrexate, [place] [address] PATHOLOGY RPT PROCEDURE Name: SHAZIA CISSE Hermilo Room: [address] IN [facility]#: [id number] Admission: 12/25/17 Date of : 40 Discharge: 01/05/18 Report #: [id number] Path Case #: [id number] Corticosteroids, and Tamoxifen). ANI and probability of alcoholic liver disease can be calculated using the following web link: [email or web address]-[email or web address] . . There are also prominent dark brown, coarse, granular pigments which are also weakly positive for [place]-Enrico stain within hepatocytes, features suggestive of Donald-Carl pigments. Clinical correlation is required to rule out the possibility of Donald-Carl syndrome in this patient. . I have also shared this case with my colleague, Dr. Mikey Arreola, who shares my special interest in GI and liver pathology, and he also agrees with the diagnosis. . Thank you for sharing this case with me. Your submitted material is enclosed. If you have any questions, please do not hesitate to reach me at [phone]. . A comprehensive review of records that included clinical notes and lab results was performed to assist in the diagnostic assessment of the case. . . Material Received A. [id number]: Liver 6 stained slides, 1 block . . Report electronically signed by Ender Siddiqui M.D., Ph.D. [phone] I verify that I have examined all relevant slides/materials for the specimen(s) and rendered or confirmed the diagnosis. . Seen in consultation with: Mikey Arreola M.D. [phone] . . Reported: 08 Jan 2018 16:50 . . A complete copy of the report is on file. . Professional services performed by [address] [address]. Technical services performed by [address], [facility] [address] [address]. . (AMJ 01/11/2018) . AZJ/01/11/2018 Addendum Electronically Signed by Leandro Horowitz MD, [place] [address] PATHOLOGY RPT PROCEDURE Name: SHAZIA CISSE Room: [address] IN [facility]#: [id number] Admission: 12/25/17 Date of : 40 Discharge: 01/05/18 Report #: [id number] Path Case #: [id number] . 02 Electronically signed: . Leandro Horowitz MD, Pathologist NPI- [id number] . 01 Gross description: . The specimen is received in formalin, labeled "Shazia Betito, liver". Received is a single needle core of light brown soft tissue measuring 2.0 cm in length by 0.1 cm in diameter. The specimen is submitted entirely in cassette A1. (CAA; 01/04/2018) QAC/QAC . 02 Pathologist provided ICD-10: K76.0, K76.9 . 02 CPT . 318198, 025962, 254330, 300329, 286639, 505165 Performed at: [facility] [address] [place] [address] [address], [place] [id number] MD Tunde Packer MD Phone: [phone] Performed at: [address] [address] [address], [place], [place] [id number] MD Leandro Horowitz MD Phone: [phone]
== END 2018-01-05 14:00 | disposition home or self-care (01) | DRG 441 ==
LOC: M.ERS 18:29 → M.TBA-ER 21:28 → M.ICU 21:28 → M.2W 12-26 14:48 → M.ORTHSURG 12-30 18:55
PROVIDERS: Emergency Medicine; Emergency Medicine Emergency Medical Services; Family Medicine; Internal Medicine; Internal Medicine Gastroenterology; Internal Medicine Hematology & Oncology; Internal Medicine Nephrology; ADMIT Internal Medicine
PROC: 05HM33Z Insertion of Infusion Device into Right Internal Jugular Vein, Percutaneous Approach (ICD-10-PCS; principal; 2018-01-01)
PROC: 30233L1 Transfusion of Nonautologous Fresh Plasma into Peripheral Vein, Percutaneous Approach (ICD-10-PCS; principal; 2018-01-01)
PROC: 30233N1 Transfusion of Nonautologous Red Blood Cells into Peripheral Vein, Percutaneous Approach (ICD-10-PCS; principal; 2018-01-01)
PROC: 0FB03ZX Excision of Liver, Percutaneous Approach, Diagnostic (ICD-10-PCS; principal; 2018-01-01)
PROC: 30233K1 Transfusion of Nonautologous Frozen Plasma into Peripheral Vein, Percutaneous Approach (ICD-10-PCS; principal; 2018-01-01)
PROC: 30233R1 Transfusion of Nonautologous Platelets into Peripheral Vein, Percutaneous Approach (ICD-10-PCS; principal; 2018-01-01)
PROC: B5131ZA Fluoroscopy of Right Jugular Veins using Low Osmolar Contrast, Guidance (ICD-10-PCS; principal; 2018-01-01)
DX: K72.00 Acute and subacute hepatic failure without coma (principal); N17.0 Acute kidney failure with tubular necrosis; E43 Unspecified severe protein-calorie malnutrition; G92 Toxic encephalopathy; K76.7 Hepatorenal syndrome; E87.1 Hypo-osmolality and hyponatremia; L03.116 Cellulitis of left lower limb; L03.115 Cellulitis of right lower limb; I13.0 Hypertensive heart and chronic kidney disease with heart failure and stage 1 through stage 4 chronic kidney disease, or unspecified chronic kidney disease; I50.22 Chronic systolic (congestive) heart failure; E87.5 Hyperkalemia; E11.22 Type 2 diabetes mellitus with diabetic chronic kidney disease; N26.1 Atrophy of kidney (terminal); D64.9 Anemia, unspecified; D69.6 Thrombocytopenia, unspecified; I35.0 Nonrheumatic aortic (valve) stenosis; I25.10 Atherosclerotic heart disease of native coronary artery without angina pectoris; E87.6 Hypokalemia; I25.5 Ischemic cardiomyopathy; E78.00 Pure hypercholesterolemia, unspecified; F32.9 Major depressive disorder, single episode, unspecified; N18.3 Chronic kidney disease, stage 3 (moderate); F17.210 Nicotine dependence, cigarettes, uncomplicated; Z95.5 Presence of coronary angioplasty implant and graft; Z90.49 Acquired absence of other specified parts of digestive tract; Z90.710 Acquired absence of both cervix and uterus; Z98.1 Arthrodesis status; Z79.02 Long term (current) use of antithrombotics/antiplatelets; Z79.82 Long term (current) use of aspirin; Z79.899 Other long term (current) drug therapy; Z88.1 Allergy status to other antibiotic agents; Z88.5 Allergy status to narcotic agent; Z88.8 Allergy status to other drugs, medicaments and biological substances; Z91.048 Other nonmedicinal substance allergy status

== ENCOUNTER 2018-03-21 03:56 | Inpatient (IN) | payer OTHER ==
[~2018-03-21] VITALS: Ht 149.9 cm; Wt 59.0 kg
[2018-03-21 03:56] VITALS: BP 209/93
[~2018-03-21 03:56] MED LIST changes: +BENADRYL25 MG PO; +CEPACOL SORE T1 EAC7 PO; +FOLIC ACID1 MG PO; +MELATIN3 MG PO; +MILK OF MA2400 MG/10 PO; +REGLAN 10 MG TA10 MG PO
[2018-03-21] MEDS ORDERED: LASIX 40 MG TAB40 M2 PO (04:03)
[2018-03-21] MEDS ORDERED: MIRALAX17 GM PO (04:04)
[2018-03-21] MEDS ORDERED: SENEXON-S TABL1 EACH PO (04:05)
[2018-03-21] MEDS ORDERED: VITAMIN D350000 UNIT PO (04:06)
[2018-03-21] MEDS ORDERED: BISACODYL SUPP10 MG RECTAL (04:08)
[2018-03-21 05:27] LABS: ABSOLUTE EOSINOPHILS 0.1 thou/uL (0.0-0.7); ABSOLUTE LYMPHOCYTES 1.3 thou/uL (0.8-5.3); ABSOLUTE MONOCYTES 0.3 thou/uL (0.0-1.2); ABSOLUTE NEUTROPHILS 3.2 thou/uL (1.6-8.1); BASOPHILS 0.6 %; EOSINOPHILS 2.3 %; HEMATOCRIT 36.5 % (37.0-47.0); HEMOGLOBIN 12.1 gm/dL (12.0-15.0); LYMPHOCYTES 25.4 %; MCH 31.1 pg (26.0-34.0); MCHC 33.2 g/dL (28.0-37.0); MCV 93.6 fL (80.0-100.0); MONOCYTES 6.4 %; MPV 8.3 fl. (7.2-11.1); NUCLEATED RBCS 0 /100WBC; PLATELET COUNT* 205 thou/uL (150-400); POLYS 65.3 %; RDW-CV 13.7 % (10.5-14.5); WBC 4.9 thou/uL (4.0-11.0)
[2018-03-21 05:36] LABS: INR 1.1; PROTIME 11.4 Seconds (9.20-11.50)
[2018-03-21 05:38] LABS: ANION GAP 8 mmol/L (7-16); BUN 20 mg/dL (7-18); CALCIUM 9.8 mg/dL (8.5-10.1); CHLORIDE 101 mmol/L (98-107); CO2 29 mmol/L (21-32); CREATININE 1.1 mg/dL (0.6-1.3); GLUCOSE 107 mg/dL (70-99); POTASSIUM 4.1 mmol/L (3.5-5.1); SODIUM 138 mmol/L (136-145)
[2018-03-21 05:46] LABS: ALBUMIN 2.9 g/dL (3.4-5.0); ALKALINE PHOSPHATASE 97 U/L (46-116); SGOT 31 U/L (15-37); SGPT 16 U/L (30-65); TOTAL BILIRUBIN 0.5 mg/dL (<0.1-1.0); TOTAL PROTEIN 6.5 g/dL (6.4-8.2); TROPONIN-I LEVEL <0.06 ng/mL (<0.06)
[2018-03-21 06:34] LABS: URINE BILIRUBIN NEGATIVE (Negative); URINE BLOOD NEGATIVE (Negative); URINE CLARITY CLEAR; URINE COLOR YELLOW; URINE GLUCOSE-RANDOM NEGATIVE (Negative); URINE KETONES NEGATIVE (Negative); URINE LEUKOCYTES-REFLEX 3+ (Negative); URINE NITRITE-REFLEX POSITIVE (Negative); URINE PROTEIN NEGATIVE (Negative); URINE UROBILINOGEN 0.2 E.U./dl (0.2-1.0)
[2018-03-21 06:39] LABS: BACTERIA-REFLEX >30 Many /HPF (None Seen); CASTS None Seen /LPF (None Seen); CRYSTALS None Seen /LPF (None Seen); MUCUS None Seen strn/LPF (None Seen); SQUAMOUS >10 Many /LPF (0-3); URINE RBC 3-10 Few /HPF (0-2); URINE WBC-REFLEX >25 Many /HPF (0-5)
--- NOTE | 2018-03-21 07:50 | NUR ---
PT HAS GIVEN PERMISSION FOR HER SON, DAVID, TO BE GIVEN PT INFORMATION. PT'S SON CALLED AND WAS GIVEN UPDATE ON PATIENT STATUS AND ROOM # SHE WILL BE ADMITTED TO.
[2018-03-21 08:02] VITALS: BP 180/69
--- NOTE | 2018-03-21 08:06 | NUR ---
REPORT GIVEN TO SALLIE BATEMAN, HOWEVER PT HAS NEW CT OF L SPINE ORDERED. PT WILL HAVE CAT SCAN OF L SPINE AND PENDING THOSE RESULTS PT WILL BE ADMITTED TO FLOOR. PT WILL STAY IN EMERGENCY DEPT UNTIL THEN.
--- NOTE | 2018-03-21 09:06 | NUR ---
PT BEING ADMITTED TO ROOM #316 AT THIS TIME. CAT SCAN OF L SPINE RESULTS HAVE BEEN READ AND PT IS BEING ADMITTED. BP 170/76, HR 73, RR 16, PAIN 7/10
[2018-03-21 09:15] VITALS: BP 196/74
--- NOTE | 2018-03-21 09:45 | NUR ---
ADMIT NOTE - PT ARRIVED VIA CART FROM ED. REPORT REC FROM BHAVANA RENEE. IV SL TO R FA. SEE ASSESSMENT. PT ORIENTED TO ROOM AND CALL LIGHT SYSTEM. MARIAH PRESENT TO DD. WILL CONTINUE TO MONITOR.
--- NOTE | 2018-03-21 12:01 | EKG ---
[place] [address] ELECTROCARDIOGRAM REPORT Name: SHAZIA CISSE Room: [address] ADM IN ..#: [id number] Admission: 03/21/18 Attend Phys: David Gruber, Discharge: Date of : 40 Report #: [id number] THIS REPORT FOR: //name// [facility] ED Test Date: 2018-03-21 Test Time: 05:15:45 Pat Name: SHAZIA CISSE Department: Room: [facility] Gender: F Materials Technician: : 1940 Requested By: Monique Londono Order Number: [id number] MD: Poncho Elmore Measurements Intervals [place] Rate: 81 P: 75 SD: 204 QRS: 42 QRSD: 137 T: -17 QT: 386 QTc: 448 Interpretive Statements Sinus rhythm Consider left atrial enlargement Left bundle branch block Compared to ECG 12/26/2017 22:39:35 Left bundle-branch block now present Intraventricular conduction delay no longer present T-wave abnormality no longer present Electronically Signed On 03-21-2018 12:01:37 CDT by Poncho Elmore [email or web address] <ELECTRONICALLY SIGNED> By: Poncho Elmore MD, FACC 03/21/18 1201 4 4 Poncho Elmore MD, FACC /EPI
--- NOTE | 2018-03-21 16:00 | NUR ---
SHIFT NOTE - SPOKE WITH SON. HE HAS SEVERAL QUESTIONS FOR THE ORTHO GROUP. HE STATES THAT PT HAS FAILED A REHAB PROGRAM ABOUT 2 MONTHS AGO, AND SHE WAS TRANSFERRED TO A SKILLED NH. STATED PT IS WC BOUND WITH STAND/PIVOT TRANSFERS. CALLED DR. GARCIA. SPOKE WITH WHO IS LINOTYPER. STATED HE HAS NOT SEEN THE PATIENT AND CANNOT COMMENT ON BENEFIT OF HIP FX REPAIR. INFORMED HIM THAT PT'S SON (MAGDALENE-DPOA) WOULD LIKE TO SPEAK WITH THEM REGARDING THE BENEFITS OF SURGICAL REPAIR VS NOT FIXING. STATED ONE OF LINDA WILL BE THERE IN AM TO DISCUSS.
[2018-03-21 16:47] VITALS: BP 186/77
[2018-03-21 21:00] VITALS: BP 177/93
[2018-03-22 04:28] VITALS: BP 177/93
--- NOTE | 2018-03-22 05:36 | NUR ---
REMAINS ON BEDREST. REPSITIONED DURING NIGHT. IV PAIN MEDICATION GIVEN AND HELPFUL FOR LEFT HIP PAIN. PLEASANTLY CONFUSED. ALERT TO SELF. NONWEIGHTBEARING TO LEFT LOWER EXTREMITY. NPO AT THIS TIME. O2 AT 2L/NC. CALL LIGHT WITHIN REACH.
[2018-03-22 06:18] VITALS: BP 173/82
--- NOTE | 2018-03-22 10:43 | NUR ---
SW met with pt to complete initial assessment, introduce self, and SW role. Pt was alert and oriented to self. Pt lives in an assisted living facility. Pt has history of SNF with [facility]. Pt has supportive son and dtr in law; SW to follow up with pt son Jonathan as needed. SW to continue to follow to assist with safe dc planning.
[2018-03-22] MEDS ORDERED: LASIX 40 MG TAB40 M2 PO (12:37)
--- NOTE | 2018-03-22 18:00 | NUR ---
PT SLOWLY PROGRESSING TOWARDS GOALS. PT ORIENTED TO PERSON AND PLACE. VSS - BP ELEVATED. AFEBRILE. PT HAD SURGERY THIS SHIFT ON LEFT HIP. PAIN CONTROLLED WITH PRN FENTNAYL AND ULTRAM. TOLERATING PO INTAKE. PT FROM [facility] AND PLANS TO RETURN AT [place]. PT SON UPDATED ON PLAN OF CARE/PT STATUS, DENIES FURTHER QUESTIONS/CONCERNS AT THIS TIME.
[2018-03-22 20:20] VITALS: BP 185/72
[2018-03-22 23:08] LABS: GLYCOHEMOGLOBIN (HGB A1C) 4.9 % (4.8-5.6)
[2018-03-23 00:01] VITALS: BP 133/54
[2018-03-23 04:09] VITALS: BP 164/64
--- NOTE | 2018-03-23 05:42 | NUR ---
PATIENT HAS BEEN SLEEPING WELL THROUGHOUT THE NIGHT WITHOUT ANY ISSUES. PAIN WELL CONTROLLED. MEDICATIONS GIVEN AND CHARTED. VSS ON 2L 02 VIA NASAL CANNULA. PATIENT HAS REMAINED NWB ON LEFT EXTREMITY. LEMUS TO DEPENDENT DRAINAGE WITH DARK YELLOW URINE OUTPUT. DRESSING TO LEFT HIP IS C/D/I. IV IN LEFT FOREARM AND RIGHT WRIST-SL. FALL PRECAUTIONS IN PLACE AND HOURLY ROUNDS MADE. WILL CONTINUE WITH PLAN OF CARE AND NURSING TO MONITOR. WILL CONTINUE WITH PLAN OF CARE AND NURSING TO MONITOR.
[2018-03-23 09:45] VITALS: BP 146/55
--- NOTE | 2018-03-23 14:14 | NUR ---
SW called and spoke with pt son regarding dc planning and pt son clarified that pt lives at [facility] and is w[place] bound now and the NH assists with all ADLs and mobility due to pt being continued fall risk. Pt son explained pt had moved from [facility] to [facility] on January 26. Pt son does not think that pt will need rehab and he is not certain that pt insurance would even approve at this point; pt son expressed that pt would be safe and have all of her needs met to be able to dc home to [facility] whenever ready to dc. SW to discuss with Kiara at [facility] whenever needed and SW will continue to follow to assist with safe dc planning.
--- NOTE | 2018-03-23 17:48 | NUR ---
PATIENT HAS BEEN SLEEPING MOST OF THE DAY, DID WORK THERAPY TODAY. SOME COMPALINTS OF PAIN WITH MOVEMENT. VITAL SIGNS STABLE ON 2 LITERS OF OXYGEN THROUGH NASAL CANNULA. LEMUS IS IN PLACE AND DRAINING WELL. CALL LIGHT IS IN REACH WILL CONTINUE TO MONITOR.
[2018-03-24 04:00] VITALS: BP 108/63
--- NOTE | 2018-03-24 06:30 | NUR ---
PATIENT HAS SLEPT WELL THROUGHOUT THE NIGHT. VSS ON 2L 02 VIA NASAL CANNULA, ALTHOUGH BP ELEVATED. PAIN MEDICATION GIVEN NEEDED AND MEDICATIONS CHARTED. ASSESSMENT CHARTED. PATIENT IS ALERT TO SELF BUT CONFUSED AND FORGETFUL. PATIENT TURNED EVERY 2 HRS AND NEEDED. LEMUS TO DEPENDENT DRAINAGE WITH YELLOW URINE OUTPUT. DRESSING TO LEFT HIP IS C/D/I. IV IN RIGHT FOREARM-SL AND LEFT WRIST-SL. FALL PRECAUTIONS IN PLACE AND HOURLY ROUNDS MADE. WILL CONTINUE WITH PLAN OF CARE AND NURSING TO MONITOR.
[2018-03-24 08:25] VITALS: BP 180/57
[2018-03-24 08:33] VITALS: BP 180/57
--- NOTE | 2018-03-24 11:05 | NUR ---
ALEXANDRA received call from pt son Jonathan who explained that he is expecting pt to be ready to dc possibly today and wanted to make sure SW/CM would call him to confirm dc plan. ALEXANDRA called Kiara at [facility] and discussed pt possible return today. Kiara said that tomorrow would be better for her staffing but she was willing to consider pt return today if needed. ALEXANDRA faxed needed information and PT eval to Kiara at [facility]. ALEXANDRA/CARMENCITA to continue to follow to assist with finalizing safe dc plan.
[2018-03-24] MEDS ORDERED: BACTRIM DS TAB1 EACH PO (11:30)
[2018-03-24] MEDS ORDERED: ASPIRIN325 PO (11:30)
[2018-03-24] MEDS ORDERED: NORCO 5-325 TA1 EACH PO (12:06)
[2018-03-24] MEDS ORDERED: TRAMADOL 50 MG50 MG PO (12:07)
--- NOTE | 2018-03-24 12:41 | NUR ---
SPOKE WITH DANO/JACKELYN ABOUT DISCHARGE FOR TODAY. SHE SAID PT.CAN RETURN TODAY. THEY WILL SKILL HER. FAXED DISCHARGE ORDERS TO HER ,ALONG WITH DC SUMMARY AND ORTHO PROGRESS NOTE. NIC SMITH ARRANGED [facility] RONY/EXPRESS [phone] FOR 2-2;30 WITH O2 AT 2L/NC. PT.INFORMED. CALLED SONMAGDALENE ON CELL. CHART COPIED AND BHAVANA COOLEY WILL CALL REPORT.
--- NOTE | 2018-03-24 14:28 | NUR ---
PT DISHCARGE ORDERS PRINTED AND GIVEN TO TRANSPORTER FOR [place]. CALLED FACILITY AND GAVE REPORT. MEDICATIONS BROUGHT OVER WERE COLLECTED FROM PHARMACY AND GIVEN TO TRANSPORTER. COPY OF THE CHART GIVEN. IV'S AND LEMUS REMOVED PRIOR TO LEAVING. HOURLY ROUNDING COMPLETED. PT LEFT VIA WHEELCHAIR TO NURSING FACILITY.
--- NOTE | 2018-04-08 09:32 | OP ---
[address] [address] OPERATIVE REPORT Name: SHAZIA CISSE Hermilo Room: [address] IN .R.#: [id number] Admission: 03/21/18 Attend Phys: David Gruber, Discharge: 03/24/18 Date of : 40 Report #: [id number] THIS REPORT FOR: //name// CC: Zenaida Gruber DATE OF SERVICE: 03/22/2018 FAMILY PHYSICIAN: Zenaida Wilsk MD PREOPERATIVE DIAGNOSIS: Nondisplaced closed femoral neck fracture, subcapital. POSTOPERATIVE DIAGNOSIS: Nondisplaced closed femoral neck fracture, subcapital. OPERATION PERFORMED: Open reduction and internal fixation, left femoral neck fracture with cannulated screws, physician-directed fluoroscopy by Dr. Moreno. SURGEON: Mikey Moreno DO. BOILERMAKER MECHANIC: Johnny Gustafson DO. ANESTHESIA: General. GROSS PATHOLOGY: There was evidence of an impacted essentially nondisplaced left femoral neck fracture, surgical neck. IMPLANTS UTILIZED: [place] 6.5 cannulated screws. DESCRIPTION OF PROCEDURE: The patient was brought to the operating room where general anesthetic was administered. The patient was on preoperative antibiotics. The patient was placed on the operating table, left leg placed in traction. The left hip was visualized with a fracture maintained in acceptable position. Hibiclens scrub and a ChloraPrep, prep were done to the left hip and leg. The patient was draped in a sterile manner. An incision was made approximately 2 inches in length on the lateral aspect of the left hip, was carried down through the skin and subcuticular material by sharp dissection. Tensor fascia allen split in line with the incision. The vastus was elevated from the femur. Guidewires x 3 were inserted into the femoral neck and head to the appropriate depth. The C-arm was used intermittently through this procedure. The guidewires were measured. The outer cortex was reamed. The appropriate length cannulated screws were placed to the appropriate depth over the guidewires. The C-arm was used intermittently throughout the surgery under my direction. Final pictures revealed acceptable position of the fracture site and implant devices. The deep tissue and tensor fascia closed with 2-0 Vicryl, subcutaneous 2-0 Vicryl and interrupted 2-0 nylon on the skin. The area was anesthetized with Marcaine 0.5% plain, approximately 20 [place] [address] OPERATIVE REPORT Name: BETITOCIARASHAZIA Hermilo Room: [address]#: [id number] Admission: 03/21/18 Attend Phys: David Gruber, Discharge: 03/24/18 Date of : 40 Report #: [id number]. The patient was transferred to recovery room in good condition. Blood loss approximately 10 mL. Needle and sponge count reported as correct and the wound was thoroughly irrigated during the procedure. <ELECTRONICALLY SIGNED> By: Mikey Moreno DO 04/08/18 0932 1401 1442Micharry Moreno DO /nt
== END 2018-03-24 14:33 | DRG 481 ==
LOC: M.ERS 03:56 → M.TBA-ER 06:34 → M.3W 06:34
PROVIDERS: Emergency Medicine; Internal Medicine; ADMIT Family Medicine
PROC: 0QS704Z Reposition Left Upper Femur with Internal Fixation Device, Open Approach (ICD-10-PCS; principal; 2018-03-22)
DX: M80.052A Age-related osteoporosis with current pathological fracture, left femur, initial encounter for fracture (principal); N39.0 Urinary tract infection, site not specified; I50.22 Chronic systolic (congestive) heart failure; E44.0 Moderate protein-calorie malnutrition; I42.9 Cardiomyopathy, unspecified; I13.0 Hypertensive heart and chronic kidney disease with heart failure and stage 1 through stage 4 chronic kidney disease, or unspecified chronic kidney disease; N18.3 Chronic kidney disease, stage 3 (moderate); E11.22 Type 2 diabetes mellitus with diabetic chronic kidney disease; B96.20 Unspecified Escherichia coli [E. coli] as the cause of diseases classified elsewhere; F32.9 Major depressive disorder, single episode, unspecified; I25.10 Atherosclerotic heart disease of native coronary artery without angina pectoris; E78.00 Pure hypercholesterolemia, unspecified; Z90.49 Acquired absence of other specified parts of digestive tract; Z90.710 Acquired absence of both cervix and uterus; Z95.5 Presence of coronary angioplasty implant and graft; Z79.82 Long term (current) use of aspirin; Z79.899 Other long term (current) drug therapy; Z88.5 Allergy status to narcotic agent; Z88.0 Allergy status to penicillin; Z88.1 Allergy status to other antibiotic agents; Z88.8 Allergy status to other drugs, medicaments and biological substances; Z87.891 Personal history of nicotine dependence; Z68.26 Body mass index [BMI] 26.0-26.9, adult

== ENCOUNTER 2018-05-06 11:35 | Inpatient (IN) | payer OTHER ==
[~2018-05-06] VITALS: Ht 152.4 cm; Wt 94.3 kg
[~2018-05-06 11:35] MED LIST changes: +ASPIRIN325 PO; +BACTRIM DS TAB1 EACH PO; +BISACODYL SUPP10 MG RECTAL; +LASIX 40 MG TAB40 M2 PO; +MIRALAX17 GM PO; +NORCO 5-325 TA1 EACH PO; +SENEXON-S TABL1 EACH PO; +TRAMADOL 50 MG50 MG PO; +VITAMIN D350000 UNIT PO
[2018-05-06 11:36] VITALS: BP 176/69
[2018-05-06 12:08] LABS: ABSOLUTE EOSINOPHILS 0.1 thou/uL (0.0-0.7); ABSOLUTE LYMPHOCYTES 1.1 thou/uL (0.8-5.3); ABSOLUTE MONOCYTES 0.3 thou/uL (0.0-1.2); ABSOLUTE NEUTROPHILS 2.4 thou/uL (1.6-8.1); BASOPHILS 0.6 %; EOSINOPHILS 1.4 %; HEMOGLOBIN 11.6 gm/dL (12.0-15.0); LYMPHOCYTES 27.7 %; MCH 31.6 pg (26.0-34.0); MCHC 33.1 g/dL (28.0-37.0); MCV 95.6 fL (80.0-100.0); MONOCYTES 7.9 %; MPV 7.8 fl. (7.2-11.1); NUCLEATED RBCS 0 /100WBC; PLATELET COUNT* 173 thou/uL (150-400); POLYS 62.4 %; RBC 3.66 mil/uL (4.20-5.00); RDW-CV 15.4 % (10.5-14.5); WBC 3.8 thou/uL (4.0-11.0)
[2018-05-06 12:16] LABS: ANION GAP 6 mmol/L (7-16); BUN 10 mg/dL (7-18); CALCIUM 8.8 mg/dL (8.5-10.1); CHLORIDE 103 mmol/L (98-107); CO2 31 mmol/L (21-32); CREATININE 1.1 mg/dL (0.6-1.3); GLUCOSE 84 mg/dL (70-99); POTASSIUM 3.9 mmol/L (3.5-5.1); SODIUM 140 mmol/L (136-145)
[2018-05-06 12:17] LABS: APTT 36.3 Seconds (25.0-31.3); INR 1.2; PROTIME 12.4 Seconds (9.20-11.50)
[2018-05-06] MEDS ORDERED: INVANZ1 GM IM (12:22)
[2018-05-06 12:34] LABS: ALBUMIN 2.7 g/dL (3.4-5.0); ALKALINE PHOSPHATASE 66 U/L (46-116); CK-MB MASS 0.8 ng/mL (<0.5-3.6); NT-PRO BRAIN NAT PEPTIDE 6908 pg/mL (<300); SGOT 32 U/L (15-37); SGPT 10 U/L (30-65); TOTAL BILIRUBIN 0.5 mg/dL (<0.1-1.0); TOTAL PROTEIN 6.6 g/dL (6.4-8.2); TROPONIN-I LEVEL <0.06 ng/mL (<0.06)
[2018-05-06 12:36] LABS: URINE BILIRUBIN NEGATIVE (Negative); URINE BLOOD TRACE (Negative); URINE CLARITY SL CLOUDY; URINE COLOR YELLOW; URINE GLUCOSE-RANDOM NEGATIVE (Negative); URINE KETONES NEGATIVE (Negative); URINE LEUKOCYTES-REFLEX 3+ (Negative); URINE NITRITE-REFLEX NEGATIVE (Negative); URINE PROTEIN NEGATIVE (Negative); URINE SPECIFIC GRAVITY 1.015 (1.005-1.030); URINE UROBILINOGEN 0.2 E.U./dl (0.2-1.0)
[2018-05-06 13:12] LABS: BACTERIA-REFLEX >30 Many /HPF (None Seen); CASTS None Seen /LPF (None Seen); CRYSTALS None Seen /LPF (None Seen); MUCUS 4-6 Moderate strn/LPF (None Seen); SQUAMOUS 0-3 Few /LPF (0-3); URINE RBC 3-10 Few /HPF (0-2); URINE WBC-REFLEX >25 Many /HPF (0-5)
[2018-05-06 15:04] VITALS: BP 149/55
[2018-05-06 15:22] VITALS: BP 158/55
[2018-05-06] MEDS ORDERED: ASPIR 8181 MG PO (15:22)
--- NOTE | 2018-05-06 15:51 | EKG ---
[place] [address] ELECTROCARDIOGRAM REPORT Name: SHAZIA CISSE Room: [address] ADM IN .R.#: [id number] Admission: 05/06/18 Attend Phys: Nura Miller MD Discharge: Date of : 40 Report #: [id number] THIS REPORT FOR: //name// [facility] ED Test Date: 2018-05-06 Test Time: 11:42:39 Pat Name: SHAZIA CISSE Department: Room: [facility] Gender: F Pan Shover: Zoya MASSEY : 1940 Requested By: Clarence Jeffrey Order Number: [id number] MD: Titus Edgar Measurements Intervals [place] Rate: 80 P: 56 ID: 162 QRS: 27 QRSD: 137 T: -15 QT: 388 QTc: 448 Interpretive Statements Sinus rhythm Ventricular premature complex poor r wave progression Compared to ECG 03/21/2018 05:15:45 Ventricular premature complex(es) now present Electronically Signed On 05-06-2018 15:51:34 CONCESSION STAND ATTENDANT by Titus Edgar [email or web address] <ELECTRONICALLY SIGNED> By: Titus Edgar MD, FAC 05/06/18 1551 1142 1142 Titus Edgar MD, [facility] /EPI
[2018-05-06 19:45] VITALS: BP 152/56
[2018-05-07] VITALS (8 sets, daily range): BP systolic 116–195; BP diastolic 66–89
[2018-05-07 05:09] LABS: ABSOLUTE LYMPHOCYTES 0.8 thou/uL (0.8-5.3); ABSOLUTE MONOCYTES 0.2 thou/uL (0.0-1.2); ABSOLUTE NEUTROPHILS 1.5 thou/uL (1.6-8.1); BASOPHILS 0.2 %; HEMATOCRIT 31.4 % (37.0-47.0); HEMOGLOBIN 10.5 gm/dL (12.0-15.0); LYMPHOCYTES 31.9 %; MCH 31.9 pg (26.0-34.0); MCHC 33.5 g/dL (28.0-37.0); MCV 95.4 fL (80.0-100.0); MPV 7.8 fl. (7.2-11.1); NUCLEATED RBCS 0 /100WBC; PLATELET COUNT* 152 thou/uL (150-400); POLYS 60.9 %; RBC 3.29 mil/uL (4.20-5.00); RDW-CV 15.3 % (10.5-14.5); WBC 2.5 thou/uL (4.0-11.0)
[2018-05-07 05:25] LABS: CALCIUM 8.8 mg/dL (8.5-10.1); POTASSIUM 3.9 mmol/L (3.5-5.1)
[2018-05-07 06:25] LABS: % SATURATION 8 % (20-39); IRON 28 ug/dL (50-175)
[2018-05-07 18:18] LABS: BE 0.1 mmol/L (-2 to +3); HCO3 26.2 mmol/L (22.0-26.0); PCO2 48.8 mmHg (35.0-45.0); PO2 91.2 mmHg (75.0-100.0); pH 7.348 (7.340-7.450)
[2018-05-08 02:30] VITALS: BP 154/85
[2018-05-08 03:55] VITALS: BP 160/60
[2018-05-08 04:47] LABS: ABSOLUTE EOSINOPHILS 0.1 thou/uL (0.0-0.7); ABSOLUTE LYMPHOCYTES 1.8 thou/uL (0.8-5.3); ABSOLUTE MONOCYTES 0.6 thou/uL (0.0-1.2); ABSOLUTE NEUTROPHILS 2.7 thou/uL (1.6-8.1); BASOPHILS 0.4 %; EOSINOPHILS 1.1 %; HEMATOCRIT 34.2 % (37.0-47.0); HEMOGLOBIN 11.2 gm/dL (12.0-15.0); LYMPHOCYTES 35.2 %; MCH 31.7 pg (26.0-34.0); MCHC 32.6 g/dL (28.0-37.0); MCV 97.2 fL (80.0-100.0); MPV 8.6 fl. (7.2-11.1); NUCLEATED RBCS 0 /100WBC; PLATELET COUNT* 144 thou/uL (150-400); POLYS 51.3 %; RBC 3.51 mil/uL (4.20-5.00); RDW-CV 15.5 % (10.5-14.5); WBC 5.2 thou/uL (4.0-11.0)
[2018-05-08 06:31] LABS: CALCIUM 9.4 mg/dL (8.5-10.1); CREATININE 1.2 mg/dL (0.6-1.3); POTASSIUM 4.4 mmol/L (3.5-5.1)
[2018-05-08 08:00] VITALS: BP 155/62
[2018-05-08 11:41] VITALS: BP 178/65
--- NOTE | 2018-05-08 12:12 | EKG ---
[place] [address] ELECTROCARDIOGRAM REPORT Name: SHAZIA CISSE Room: [address] ADM IN M.R.#: [id number] Admission: 05/06/18 Attend Phys: Nura Miller MD Discharge: Date of : 40 Report #: [id number] THIS REPORT FOR: //name// [facility] Test Date: 2018-05-07 Test Time: 17:00:15 Pat Name: SHAZIA CISSE Department: Room: [address] Gender: F Senior Sql Dba: ANAM TONY : 1940 Requested By: Nura Miller Order Number: [id number] Reading MD: Poncho Elmore Measurements Intervals [place] Rate: 104 P: 73 [place]: 179 QRS: 55 QRSD: 119 T: -48 QT: 342 QTc: 450 Interpretive Statements Sinus tachycardia Nonspecific intraventricular conduction delay Nonspecific T abnormalities, inferior leads Compared to ECG 05/06/2018 11:42:39 Intraventricular conduction delay now present T-wave abnormality now present Sinus rhythm no longer present Ventricular premature complex(es) no longer present Poor R-wave progression no longer present Electronically Signed On 05-08-2018 12:12:33 TUBING ASSEMBLER by Poncho Elmore [email or web address] <ELECTRONICALLY SIGNED> By: Poncho Elmore MD, FACC 05/08/18 1212 170 170 Poncho Elmore MD, FACC /EPI
--- NOTE | 2018-05-08 12:13 | EKG ---
[place] [address] ELECTROCARDIOGRAM REPORT Name: SHAZIA CISSE Room: [address] ADM IN .R.#: [id number] Admission: 05/06/18 Attend Phys: Nura Miller MD Discharge: Date of : 40 Report #: [id number] THIS REPORT FOR: //name// [facility] Test Date: 2018-05-07 Test Time: 19:21:50 Pat Name: SHAZIA CISSE Department: Room: [address] Gender: F Silk Weaver: MOOSE : 1940 Requested By: Nura Miller Order Number: [id number] Reading MD: Poncho Elmore Measurements Intervals [place] Rate: 139 P: RI: QRS: 36 QRSD: 90 T: -57 QT: 289 QTc: 440 Interpretive Statements Atrial fibrillation with rapid V-rate Repolarization abnormality, prob rate related Compared to ECG 05/06/2018 11:42:39 Early repolarization now present Sinus rhythm no longer present Ventricular premature complex(es) no longer present Poor R-wave progression no longer present Electronically Signed On 05-08-2018 12:13:12 FAST FOOD CREW LEAD by Poncho Elmore [email or web address] <ELECTRONICALLY SIGNED> By: Poncho Elmore MD, FACC 05/08/18 121 20 20 Poncho Elmore MD, FAC /EPI
[2018-05-08 16:00] VITALS: BP 166/62
[2018-05-08 16:28] LABS: BE 4.1 mmol/L (-2 to +3); HCO3 31.3 mmol/L (22.0-26.0); PO2 87.1 mmHg (75.0-100.0); pH 7.334 (7.340-7.450)
[2018-05-08 16:36] LABS: PCO2 60.2 mmHg (35.0-45.0)
[2018-05-08 20:05] VITALS: BP 158/80
[2018-05-09] VITALS (7 sets, daily range): BP systolic 88–184; BP diastolic 46–71
[2018-05-09 05:09] LABS: CALCIUM 9.4 mg/dL (8.5-10.1); CREATININE 1.1 mg/dL (0.6-1.3); POTASSIUM 4.3 mmol/L (3.5-5.1)
[2018-05-09 12:25] LABS: CALCIUM 9.4 mg/dL (8.5-10.1); CREATININE 1.6 mg/dL (0.6-1.3)
[2018-05-09 12:33] LABS: ABSOLUTE LYMPHOCYTES 0.9 thou/uL (0.8-5.3); ABSOLUTE MONOCYTES 0.3 thou/uL (0.0-1.2); ABSOLUTE NEUTROPHILS 3.4 thou/uL (1.6-8.1); BASOPHILS 0.2 %; EOSINOPHILS 0.5 %; HEMATOCRIT 31.4 % (37.0-47.0); HEMOGLOBIN 10.5 gm/dL (12.0-15.0); LYMPHOCYTES 19.8 %; MCH 31.9 pg (26.0-34.0); MCHC 33.3 g/dL (28.0-37.0); MCV 95.7 fL (80.0-100.0); MONOCYTES 5.9 %; MPV 8.9 fl. (7.2-11.1); NUCLEATED RBCS 0 /100WBC; PLATELET COUNT* 128 thou/uL (150-400); POLYS 73.6 %; RBC 3.28 mil/uL (4.20-5.00); RDW-CV 15.1 % (10.5-14.5); WBC 4.7 thou/uL (4.0-11.0)
--- NOTE | 2018-05-09 13:00 | EKG ---
[place] [address] ELECTROCARDIOGRAM REPORT Name: SHAZIA CISSE Room: [address] ADM IN M.R.#: [id number] Admission: 05/06/18 Attend Phys: Nura Miller MD Discharge: Date of : 40 Report #: [id number] THIS REPORT FOR: //name// [facility] Test Date: 2018-05-09 Test Time: 02:13:32 Pat Name: SHAZIA CISSE Department: Room: [address] Gender: F Ride Operator: KAMILLA : 1940 Requested By: Sandoval Sherwood Order Number: [id number] Reading MD: Poncho Elmore Measurements Intervals [place] Rate: 127 P: [place]: QRS: 118 QRSD: 147 T: -9 QT: 359 QTc: 523 Interpretive Statements Atrial fibrillation RBBB and LPFB Compared to ECG 05/07/2018 19:21:50 Left posterior fascicular block now present Right bundle-branch block now present Early repolarization no longer present Electronically Signed On 05-09-2018 13:00:34 COMPUTER SCIENCE INSTRUCTOR by Poncho Elmore [email or web address] <ELECTRONICALLY SIGNED> By: Poncho Elmore MD, FACC 05/09/18 1300 2 021 Poncho Elmore MD, [facility] /EPI
[2018-05-10 03:30] VITALS: BP 178/62
[2018-05-10 04:54] LABS: HEMATOCRIT 29.8 % (37.0-47.0); MCH 31.9 pg (26.0-34.0); MCHC 33.4 g/dL (28.0-37.0); MCV 95.3 fL (80.0-100.0); MPV 8.8 fl. (7.2-11.1); NUCLEATED RBCS 0 /100WBC; PLATELET COUNT* 111 thou/uL (150-400); RBC 3.12 mil/uL (4.20-5.00)
[2018-05-10 05:19] LABS: CALCIUM 9.1 mg/dL (8.5-10.1); CREATININE 1.4 mg/dL (0.6-1.3); POTASSIUM 4.6 mmol/L (3.5-5.1)
[2018-05-10 05:30] LABS: WBC 1.7 thou/uL (4.0-11.0)
[2018-05-10 06:43] LABS: ABSOLUTE LYMPHOCYTES 0.4 thou/uL (0.8-5.3); ABSOLUTE NEUTROPHILS 1.3 thou/uL (1.6-8.1); ATYPICAL LYMPHS 6 %
[2018-05-10 06:44] LABS: PLATELET ESTIMATE ADEQUATE
[2018-05-10 07:30] VITALS: BP 174/68
--- NOTE | 2018-05-10 08:12 | CON ---
[address] [address] CONSULTATION Name: BETITOSHAZIA A Room: [address] IN ..#: [id number] Admission: 05/06/18 Attend Phys: Nura Miller MD Discharge: Date of : 40 Report #: [id number] THIS REPORT FOR: //name// CC: Shane Miller DATE OF SERVICE: 05/09/2018 NEW PATIENT EVALUATION REASON FOR EVALUATION: Evaluate for acute respiratory failure, altered mental status, hypercapnia, respiratory distress and wheezing. HISTORY OF PRESENT ILLNESS: The patient is a 77-year-old woman with history of dementia, detention resident, who came in with worsening encephalopathy and concern for UTI. The patient has advanced dementia and schizophrenia. She was treated with ertapenem for UTI. The patient at this time is on chronic oxygen at 2 liters. She is complaining of worsening respiratory distress. Wheezing. Discussed with nursing. The patient has been BiPAP dependent since yesterday, having respiratory distress, having shortness of breath with conversation, occasional cough and wheezing. She is on breathing treatment every 6 hours as needed. Chest x-ray, which I reviewed, showed only minimal interstitial edema. PAST MEDICAL HISTORY: Severe dementia, chronic kidney disease, schizophrenia, systolic congestive heart failure and weakness. PAST SURGICAL HISTORY: Angioplasty before. ALLERGIES: ALLERGIC TO PENICILLIN AND CIPRO. SOCIAL HISTORY: She described heavy smoking before, but cannot state for how long. FAMILY HISTORY: Noncontributory. PHYSICAL EXAMINATION: GENERAL: The patient is currently off BiPAP, however, in distress, having respiratory distress. VITAL SIGNS: Respiratory rate 28-32, O2 saturation is adequate, afebrile, pulse rate 77 and blood pressure 171/57. HEAD AND NECK: Neck is supple. Eyes, anicteric. Neck, no lymph node enlargement. CHEST: Diffuse wheezing with diffusely decreased breath sounds. CARDIOVASCULAR: Regular rhythm, normal S1, [place] [address] CONSULTATION Name: SHAZIA CISSE Room: [address] IN [facility]#: [id number] Admission: 05/06/18 Attend Phys: Nura Miller MD Discharge: Date of : 40 Report #: [id number] ABDOMEN: Soft, nontender. EXTREMITIES: Trace edema. PSYCHIATRIC: Flat affect, appropriate. NEUROLOGIC: No focal deficit. SKIN: No changes. LABORATORY DATABASE: Her white blood cell count 5.2, hemoglobin 11.2 and platelets 144,000, slightly decreased. Arterial blood gas on 05/08/2018, pH of 7.3, pCO2 of 60 and pO2 of 87 and this was on nasal cannula. ABG was better with pCO2 of 48 on BiPAP 16/6. A chest x-ray, which I have reviewed, showed no acute infiltrate. ASSESSMENT AND PLAN: Ypcbn-ae-zywzyiw hypercapnic and hypoxemic respiratory failure. The patient known to have systolic congestive heart failure. At this time, the patient was admitted with altered mental status, atrial fibrillation with rapid response, suspect atrial fibrillation exacerbating her congestive heart failure. Treatment with diuresis for atrial fibrillation per Cardiology. The patient also has a previous history of smoking, chronic hypoxemic respiratory failure and chronic hypercapnia and has presumed chronic obstructive pulmonary disease, currently in exacerbation. We will add Solu-Medrol 60 mg q.12 hours. I will increase her breathing treatments to every 4 hours at this time. At this time, the patient still in distress. We will continue to use BiPAP. We will obtain blood gas in the morning without nasal cannula to evaluate response to treatment. Currently, I agree with antibiotic treatment. Obtain also chest x-ray in the morning. At this time, continue BiPAP use at night and most of the day, give breaks for meals and hold for 2 hours after meals. Obtain chest x-ray in the morning as well. Critical care time taking care of the patient, discussing with nursing staff and nurse was 32 minutes. <ELECTRONICALLY SIGNED> By: Omero Pérez MD 05/10/18 0812 0950 [id number] Gallo Ruth MD /nt
[2018-05-10 08:56] LABS: BE 4.9 mmol/L (-2 to +3); HCO3 30.3 mmol/L (22.0-26.0); PCO2 49.4 mmHg (35.0-45.0); PO2 85.2 mmHg (75.0-100.0)
[2018-05-10 12:00] VITALS: BP 136/67
--- NOTE | 2018-05-10 13:54 | 2DMMODE ---
[place] [address] 2 D/M-MODE ECHOCARDIOGRAM Name: SHAZIA CISSE Hermilo Room: [address] IN [facility]#: [id number] Admission: 05/06/18 Attend Phys: Nura Miller MD Discharge: Date of : 40 Date of Service: 05/10/18 1353 Report #: [id number] THIS REPORT FOR: //name// APPROVED REPORT Study performed: 05/10/2018 11:13:48 EXAM: Limited 2D Echocardiogram Patient Location: In-Patient Room #: 220 Status: routine BSA: 1.51 HR: 71 bpm BP: 174/68 mmHg Rhythm: NSR Other Information Study Quality: Good Indications Atrial Fibrillation Left Ventricle The left ventricle is normal size. severe inferior hypokinesis Mild to moderate concentric left ventricular hypertrophy. Left ventricular systolic function is mildly decreased. LVEF is 45%. Right Ventricle The right ventricle is normal size. The right ventricular systolic function is normal. Pacemaker lead is present in the right ventricle. Atria The left atrium size is normal. The right atrium size is normal. Aortic Valve Moderate aortic valve sclerosis. No aortic regurgitation is present. There is no aortic valvular stenosis. Mitral Valve There is mitral annular calcification. Tricuspid Valve The tricuspid valve is normal in structure. Pulmonic Valve [address] [address] 2 D/M-MODE ECHOCARDIOGRAM Name: SHAZIA CISSE Room: [address] ADM IN .R.#: [id number] Admission: 05/06/18 Attend Phys: Nura Miller MD Discharge: Date of : 40 Date of Service: 05/10/18 135 Report #: [id number] The pulmonary valve is normal in structure. Great Vessels The aortic root is normal in size. IVC is normal in size and collapses >50% with inspiration. Pericardium There is no pericardial effusion. <Conclusion> LVEF is 45%. severe inferior hypokinesis Moderate aortic valve sclerosis. There is no aortic valvular stenosis. <ELECTRONICALLY SIGNED> By: Poncho Elmore MD, FACC 05/10/18 135 52 52 Poncho Elmore MD, FACC /INF
--- NOTE | 2018-05-10 14:52 | CON ---
[address] [address] CONSULTATION Name: SHAZIA CISSE Hermilo Room: [address] IN ..#: [id number] Admission: 05/06/18 Attend Phys: Nura Miller MD Discharge: Date of : 40 Report #: [id number] THIS REPORT FOR: //name// CC: Shane Miller PRIMARY STERILE PROCESSING TECHNICIAN: Dr. Titus Edgar. CHIEF COMPLAINT: Shortness of breath. HISTORY OF PRESENT ILLNESS: The patient is a 77-year-old female who we are asked to see in regards to her worsening shortness of breath, requiring CPAP. Also, she was noted to go into atrial fibrillation with rapid ventricular responses in the 130s-140s transiently. She was placed on IV Cardizem and converted to sinus rhythm and she remains in a sinus rhythm this morning. She is a group home patient with ischemic cardiomyopathy and rvbrpfsl-qg-oypihr LV dysfunction. She is followed by Dr. Edgar in our practice. She was initially admitted for failure of her urinary tract infection treatment and overall clinical deterioration. PAST MEDICAL HISTORY: She does have a history of coronary disease, but there is no record of chest discomfort. 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 She suffers from significant advanced dementia. She is a group home patient. From a cardiovascular standpoint, she has a history of patodppy-dp-khkmmd LV dysfunction and prior ICD implantation, but her family decided to discontinue monitoring. She has a prior PCI in her LAD per Dr. Coronado in 2011 and then she was followed by Dr. Gotti. She is still anticoagulated with Plavix. She had an echocardiogram this December, which showed an ejection fraction of 45-50% with mild aortic valve stenosis, mild mitral regurgitation, mild pulmonary hypertension. She has dementia, hypertension, aforementioned frequent urinary tract infections, COPD. She apparently is still a smoker. ALLERGIES: SHE HAS ALLERGIES TO CIPROFLOXACIN, CODEINE, PENICILLIN AND CERTAIN WOOLS. MEDICATIONS: She has been on the following medications: Aspirin, Plavix, magnesium oxide, Reglan, Lasix 40 mg p.r.n., melatonin, Plavix 75 mg daily, ranolazine 500 mg p.o. b.i.d., carvedilol 6.25 mg p.o. b.i.d., Zocor 10 mg at bedtime, fenofibrate. PAST SURGICAL HISTORY: No recent surgeries. FAMILY HISTORY: [place] [address] CONSULTATION Name: SHAZIA CISSE Room: [address]#: [id number] Admission: 05/06/18 Attend Phys: Nura Miller MD Discharge: Date of : 40 Report #: [id number] SOCIAL HISTORY: One pack per day for more than 50 years. No active alcohol use. REVIEW OF SYSTEMS: GASTROINTESTINAL: No nausea, vomiting. No hematemesis, no melena. GENITOURINARY: No dysuria, no hematuria. CARDIOVASCULAR: No record of chest pain. Positive shortness of breath, positive orthopnea, positive PND. PULMONARY: Positive shortness of breath, positive cough. MUSCULOSKELETAL: No falls. SKIN: No rashes. PHYSICAL EXAMINATION: VITAL SIGNS: She presented hypertensive initially with blood pressure measuring 190 systolic, but with respiratory treatment her blood pressure has come down to 155/60. Her current heart rate on IV Cardizem is 60 beats per minute. She is currently on BiPAP. GENERAL: She is a pleasant female. She is a poor historian. She is in moderate respiratory distress. HEENT: There is no evidence of trauma. NECK: There is no jugular venous distention. CARDIOVASCULAR: Heart tones are distant. I could hear faint systolic murmur. Breath sounds are coarse bilaterally. ABDOMEN: Soft, nontender, nondistended. EXTREMITIES: There is a trace amount of edema. NEUROLOGIC: There are no focal deficits. LABORATORY DATA: Electrocardiogram on presentation showed a sinus rhythm with an IVCD. As noted above, the patient was transiently in atrial fibrillation with a rate of 140 beats per minute and she is currently in a sinus rhythm. Her hemoglobin is 11.2, white blood count is 5.2. Her sodium is 139, potassium is 4.4, BUN 16, creatinine is 1.2. Her troponin I is 0.06. INR is 1.2. Chest x-ray shows mild chronic lung changes, no acute process. BNP was 6908. IMPRESSION AND PLAN: 1. Acute systolic congestive heart failure. I would continue with IV Lasix cautiously. She does have an underlying history of stage III kidney disease remotely. 2. Ischemic cardiomyopathy, chronic systolic dysfunction. Her ejection fraction was mildly reduced in December. I ordered a limited echocardiogram to recheck this. At this point in time, she reports no angina type symptoms and her troponin is normal. I would proceed with a conservative approach. 3. Atrial fibrillation. This is new onset and she presents somewhat tachycardic. I would like to try to maintain a sinus rhythm. I elected to switch her to sotalol from carvedilol. I placed her on 80 mg p.o. b.i.d. She [facility] [address] [place] [address] CONSULTATION Name: SHAZIA CISSE Room: [address] IN [facility]#: [id number] Admission: 05/06/18 Attend Phys: Nura Miller MD Discharge: Date of : 40 Report #: [id number] has a CHADS-VASc score of 4 and I would anticoagulate her, but I do not think she should be on both Plavix and a novel agent, so I elected discontinue Plavix in lieu of Eliquis 5 mg p.o. b.i.d. 4. Frequent urinary tract infections per our hospital colleagues and Infectious Disease specialist. <ELECTRONICALLY SIGNED> By: Poncho Elmore MD, FACC 05/10/18 1452 1053 1923Poncho Elmore MD, FACC /nt
[2018-05-10 16:00] VITALS: BP 136/58
[2018-05-10 19:30] VITALS: BP 156/62
[2018-05-11] VITALS: BP 146/61
[2018-05-11 03:06] LABS: ADENOVIRUS Negative (Negative); INFLUENZA A Negative (Negative); INFLUENZA B Negative (Negative); METAPNEUMOVIRUS Positive (Negative); PARAINFLUENZA 1 Negative (Negative); PARAINFLUENZA 2 Negative (Negative); PARAINFLUENZA 3 Negative (Negative); RHINOVIRUS Negative (Negative); RSV A Negative (Negative); RSV B Negative (Negative)
[2018-05-11 04:00] VITALS: BP 153/72
[2018-05-11 05:56] LABS: ABSOLUTE LYMPHOCYTES 0.4 thou/uL (0.8-5.3); ABSOLUTE MONOCYTES 0.1 thou/uL (0.0-1.2); ABSOLUTE NEUTROPHILS 2.3 thou/uL (1.6-8.1); BASOPHILS 0.3 %; HEMATOCRIT 26.3 % (37.0-47.0); HEMOGLOBIN 8.9 gm/dL (12.0-15.0); LYMPHOCYTES 13.8 %; MCH 32.2 pg (26.0-34.0); MCHC 33.8 g/dL (28.0-37.0); MCV 95.2 fL (80.0-100.0); MONOCYTES 4.4 %; MPV 9.1 fl. (7.2-11.1); NUCLEATED RBCS 0 /100WBC; PLATELET COUNT* 117 thou/uL (150-400); POLYS 81.5 %; RBC 2.77 mil/uL (4.20-5.00); WBC 2.8 thou/uL (4.0-11.0)
[2018-05-11 06:21] LABS: ALBUMIN 2.6 g/dL (3.4-5.0); CALCIUM 9.4 mg/dL (8.5-10.1); CREATININE 1.5 mg/dL (0.6-1.3); POTASSIUM 4.7 mmol/L (3.5-5.1); TOTAL BILIRUBIN 0.4 mg/dL (<0.1-1.0); TOTAL PROTEIN 6.2 g/dL (6.4-8.2)
[2018-05-11 08:23] VITALS: BP 162/66
[2018-05-11 13:14] VITALS: BP 109/61
[2018-05-11 16:00] VITALS: BP 139/64
[2018-05-11 19:45] VITALS: BP 119/62
[2018-05-12] VITALS: BP 110/91
[2018-05-12 04:00] VITALS: BP 135/66
[2018-05-12 05:32] LABS: NUCLEATED RBCS 0 /100WBC; WBC 2.8 thou/uL (4.0-11.0)
[2018-05-12 05:37] LABS: CALCIUM 9.7 mg/dL (8.5-10.1); CREATININE 1.3 mg/dL (0.6-1.3); POTASSIUM 4.5 mmol/L (3.5-5.1)
[2018-05-12 05:38] LABS: ABSOLUTE LYMPHOCYTES 0.4 thou/uL (0.8-5.3); ABSOLUTE MONOCYTES 0.1 thou/uL (0.0-1.2); ABSOLUTE NEUTROPHILS 2.3 thou/uL (1.6-8.1); BASOPHILS 0.2 %; HEMATOCRIT 27.9 % (37.0-47.0); HEMOGLOBIN 9.2 gm/dL (12.0-15.0); LYMPHOCYTES 13.3 %; MCH 32.3 pg (26.0-34.0); MCHC 32.9 g/dL (28.0-37.0); MCV 98.2 fL (80.0-100.0); MPV 9.5 fl. (7.2-11.1); PLATELET COUNT* 118 thou/uL (150-400); POLYS 83.5 %; RBC 2.84 mil/uL (4.20-5.00); RDW-CV 15.4 % (10.5-14.5)
[2018-05-12 08:05] VITALS: BP 141/60
[2018-05-12 12:00] VITALS: BP 142/52
--- NOTE | 2018-05-12 12:14 | CON ---
[address] [address] CONSULTATION Name: SHAZIA CISSE Room: [address] IN .R.#: [id number] Admission: 05/06/18 Attend Phys: Nura Miller MD Discharge: Date of : 40 Report #: [id number] THIS REPORT FOR: //name// CC: Shane Miller DATE OF SERVICE: 05/11/2018 INFECTIOUS DISEASES CONSULTATION ATTENDING PHYSICIAN: Dr. Miller. REASON FOR EVALUATION: Complicated urinary tract infection due to multiple resistant including vancomycin, Enterococcus urinary tract infection, also had metapneumovirus isolated from respiratory viral sample. HISTORY OF PRESENT ILLNESS: Chart reviewed, patient examined. This is a 77-year-old from [place]. I saw her earlier this year. She has diabetes mellitus and fairly advanced dementia who presented with respiratory failure, encephalopathy, acute on chronic setting of dementia. She had been previously treated for complicated urinary tract infection presumably due to resistant Gram-negative and on IM imipenem for a total of 7 days. At the time of evaluation, she had low grade temperature elevation with complaints of nausea. Evaluation noted urinalysis with marked pyuria, now urine culture with growth of vancomycin-resistant Enterococcus. Blood cultures are sterile. As noted above, a respiratory viral panel was collected now with isolation of metapneumovirus. She was started empirically on ceftriaxone as well as levofloxacin. She is unable to give to me details of history. She is still profoundly encephalopathic. ALLERGIES: LISTED TO PENICILLIN, CODEINE, CIPROFLOXACIN. MEDICATIONS: Include ipratropium and albuterol inhaler, morphine sulfate, levofloxacin, sotalol, apixaban, chlorthalidone, aspirin, cholecalciferol, folic acid, fenofibrate, ascorbic acid, trazodone, ranolazine, dicyclomine, olanzapine, atorvastatin, metoclopramide, had been on methylprednisolone as well. PAST MEDICAL AND SURGICAL HISTORY: The patient has known diabetes mellitus, this is complicated by vasculopathy, known coronary artery disease, previous stenting, hypercholesterolemia, hypertension, previous hysterectomy, cholecystectomy. SOCIAL HISTORY: Former smoker, occasional ethanol, no illicit drug use. FAMILY HISTORY: [place] [address] CONSULTATION Name: SHAZIA CISSE Room: [address]#: [id number] Admission: 05/06/18 Attend Phys: Nura Miller MD Discharge: Date of : 40 Report #: [id number] REVIEW OF SYSTEMS: Not reliably obtained. PHYSICAL EXAMINATION: GENERAL: She appears chronically ill, undernourished. She is not oriented, is in moderate distress, appears quite chronically ill. VITAL SIGNS: Temperature 98, pulse 64, respirations 20, blood pressure 109/61. SKIN: Warm. HEENT: Extraocular muscles intact. NECK: Supple. LUNGS: Diminished breath sounds. HEART: Regular. Borderline bradycardic. She has a soft systolic murmur. ABDOMEN: Soft, nontender, nondistended. There are no peritoneal signs. EXTREMITIES: Distal lower extremities are warm. GENITOURINARY: Deferred. RECTAL: Deferred. LABORATORY DATA: Blood cultures sterile thus far. Metabolic profile: Sodium 139, potassium 4.7, chloride 102, bicarbonate is 31, anion gap of 6, BUN and creatinine is 34 and 1.5, glucose of 137. LFTs unremarkable. Albumin of 2.6, total protein 6.2. CBC: White count of 2.8, H and H and 8.9 and 26.3 and platelets of 117. Echo, ejection fraction 45%, severe inferior hypokinesis, moderate aortic valve sclerosis. Urine culture as described above, VRE, multiple resistant including PENICILLIN. Chest x-ray, no acute process. ASSESSMENT: Complicated urinary tract infection. The patient apparently has had repeated issues. I suspect underlying bladder dysfunction, I think with multiple courses of antibiotics. It is not surprising she has multiple-resistant organism. We will start linezolid to see how she does clinically. Obviously, it is difficult to ascertain whether this is more of an septic bacteriuria, although she has been quite ill. I am not certain of her baseline. We will have to monitor expectantly with her borderline counts noted on CBC. She is certainly at risk for drug-drug interactions as she was on other antibiotics as well. We will monitor expectantly for signs of related infectious complications, which she is at, I believe high risk. Overall prognosis appears guarded. It is notable that during the exam, she was pulling in her catheter frequently. Whether it is an issue longstanding is not certain. <ELECTRONICALLY SIGNED> By: Julián Landa MD 05/12/18 1214 162 43Julián Landa MD /william
[2018-05-12 16:01] VITALS: BP 183/61
[2018-05-12 17:19] LABS: URINE BILIRUBIN NEGATIVE (Negative); URINE BLOOD 2+ (Negative); URINE CLARITY CLEAR; URINE COLOR YELLOW; URINE GLUCOSE-RANDOM NEGATIVE (Negative); URINE KETONES NEGATIVE (Negative); URINE LEUKOCYTES-REFLEX 1+ (Negative); URINE NITRITE-REFLEX NEGATIVE (Negative); URINE PROTEIN NEGATIVE (Negative); URINE SPECIFIC GRAVITY 1.015 (1.005-1.030); URINE UROBILINOGEN 0.2 E.U./dl (0.2-1.0)
[2018-05-12 17:25] LABS: BACTERIA-REFLEX None Seen /HPF (None Seen); CASTS None Seen /LPF (None Seen); CRYSTALS None Seen /LPF (None Seen); SQUAMOUS NONE SEEN /LPF (0-3); URINE RBC 0-2 Rare /HPF (0-2); URINE WBC-REFLEX 0-5 Rare /HPF (0-5)
[2018-05-12 20:57] VITALS: BP 166/53
[2018-05-13] VITALS (7 sets, daily range): BP systolic 134–176; BP diastolic 52–69
[2018-05-13 05:15] LABS: ABSOLUTE LYMPHOCYTES 1.2 thou/uL (0.8-5.3); ABSOLUTE MONOCYTES 0.5 thou/uL (0.0-1.2); ABSOLUTE NEUTROPHILS 3.8 thou/uL (1.6-8.1); BASOPHILS 0.5 %; EOSINOPHILS 0.1 %; HEMATOCRIT 27.5 % (37.0-47.0); HEMOGLOBIN 9.1 gm/dL (12.0-15.0); LYMPHOCYTES 21.9 %; MCH 32.1 pg (26.0-34.0); MCHC 33.2 g/dL (28.0-37.0); MCV 96.5 fL (80.0-100.0); MONOCYTES 9.2 %; MPV 9.8 fl. (7.2-11.1); NUCLEATED RBCS 0 /100WBC; PLATELET COUNT* 124 thou/uL (150-400); POLYS 68.3 %; RBC 2.85 mil/uL (4.20-5.00); WBC 5.6 thou/uL (4.0-11.0)
[2018-05-13 05:22] LABS: CALCIUM 9.5 mg/dL (8.5-10.1); CREATININE 1.3 mg/dL (0.6-1.3); POTASSIUM 4.1 mmol/L (3.5-5.1)
[2018-05-14] VITALS: BP 100/71
[2018-05-14 04:00] VITALS: BP 137/53
[2018-05-14 04:47] LABS: ABSOLUTE LYMPHOCYTES 1.1 thou/uL (0.8-5.3); ABSOLUTE MONOCYTES 0.4 thou/uL (0.0-1.2); ABSOLUTE NEUTROPHILS 4.7 thou/uL (1.6-8.1); BASOPHILS 0.5 %; EOSINOPHILS 0.3 %; HEMATOCRIT 27.5 % (37.0-47.0); HEMOGLOBIN 9.3 gm/dL (12.0-15.0); LYMPHOCYTES 16.9 %; MCH 32.2 pg (26.0-34.0); MCHC 33.6 g/dL (28.0-37.0); MCV 95.9 fL (80.0-100.0); MONOCYTES 7.1 %; MPV 9.4 fl. (7.2-11.1); NUCLEATED RBCS 0 /100WBC; PLATELET COUNT* 135 thou/uL (150-400); POLYS 75.2 %; RBC 2.87 mil/uL (4.20-5.00); RDW-CV 14.9 % (10.5-14.5); WBC 6.3 thou/uL (4.0-11.0)
[2018-05-14 05:30] LABS: CALCIUM 9.2 mg/dL (8.5-10.1); CREATININE 1.3 mg/dL (0.6-1.3)
[2018-05-14 07:30] VITALS: BP 145/43
[2018-05-14 10:13] LABS: BE 7.8 mmol/L (-2 to +3); HCO3 33.7 mmol/L (22.0-26.0); PO2 67.1 mmHg (75.0-100.0); pH 7.412 (7.340-7.450)
[2018-05-14 10:16] LABS: PCO2 54.2 mmHg (35.0-45.0)
[2018-05-14 12:00] VITALS: BP 120/92
[2018-05-14 15:48] VITALS: BP 180/57
[2018-05-14 20:12] VITALS: BP 181/70
[2018-05-15] VITALS: BP 111/37
[2018-05-15 04:00] VITALS: BP 117/92; BP 160/59
[2018-05-15 05:06] VITALS: BP 181/70
[2018-05-15 05:20] LABS: HEMATOCRIT 30.1 % (37.0-47.0); HEMOGLOBIN 10.1 gm/dL (12.0-15.0); MCH 32.2 pg (26.0-34.0); MCHC 33.6 g/dL (28.0-37.0); MCV 95.6 fL (80.0-100.0); MPV 9.5 fl. (7.2-11.1); RBC 3.15 mil/uL (4.20-5.00); RDW-CV 14.9 % (10.5-14.5); WBC 8.2 thou/uL (4.0-11.0)
[2018-05-15 06:26] LABS: CALCIUM 9.5 mg/dL (8.5-10.1); CREATININE 1.6 mg/dL (0.6-1.3); POTASSIUM 4.1 mmol/L (3.5-5.1)
[2018-05-15 08:00] VITALS: BP 131/55
[2018-05-15 12:00] VITALS: BP 175/64
[2018-05-15 19:24] LABS: BE 8.7 mmol/L (-2 to +3); HCO3 31.8 mmol/L (22.0-26.0); PO2 119.5 mmHg (75.0-100.0); pH 7.541 (7.340-7.450)
[2018-05-15 20:00] VITALS: BP 119/56
[2018-05-16] VITALS: BP 149/41
[2018-05-16 04:48] VITALS: BP 95/73
[2018-05-16 05:24] LABS: HEMOGLOBIN 9.6 gm/dL (12.0-15.0); MCH 32.8 pg (26.0-34.0); MCHC 34.2 g/dL (28.0-37.0); MCV 95.9 fL (80.0-100.0); MPV 8.8 fl. (7.2-11.1); NUCLEATED RBCS 0 /100WBC; PLATELET COUNT* 141 thou/uL (150-400); RBC 2.92 mil/uL (4.20-5.00); RDW-CV 14.8 % (10.5-14.5); WBC 6.9 thou/uL (4.0-11.0)
[2018-05-16 06:12] LABS: ALBUMIN 2.4 g/dL (3.4-5.0); CALCIUM 9.5 mg/dL (8.5-10.1); CREATININE 1.8 mg/dL (0.6-1.3); POTASSIUM 4.5 mmol/L (3.5-5.1); TOTAL BILIRUBIN 0.9 mg/dL (<0.1-1.0); TOTAL PROTEIN 6.2 g/dL (6.4-8.2)
[2018-05-16 06:24] LABS: ABSOLUTE LYMPHOCYTES 0.4 thou/uL (0.8-5.3); ABSOLUTE MONOCYTES 0.1 thou/uL (0.0-1.2); ABSOLUTE NEUTROPHILS 6.4 thou/uL (1.6-8.1); PLATELET ESTIMATE ADEQUATE
[2018-05-16 08:15] VITALS: BP 164/46
[2018-05-16 09:00] VITALS: BP 164/46
[2018-05-16 12:00] VITALS: BP 184/58
[2018-05-16 19:50] VITALS: BP 225/81
[2018-05-17] VITALS (10 sets, daily range): BP systolic 150–210; BP diastolic 48–71
[2018-05-17 06:06] LABS: CALCIUM 9.5 mg/dL (8.5-10.1); CREATININE 1.8 mg/dL (0.6-1.3); POTASSIUM 4.1 mmol/L (3.5-5.1)
[2018-05-17] MEDS ORDERED: FIRVANQ50 MG/1 ML PO (12:40)
[2018-05-17] MEDS ORDERED: CATAPRES-TTS 21 EACH TRANSDERM (12:42)
[2018-05-17] MEDS ORDERED: PREDNISONE 10 M10 MG PO (12:54)
== END 2018-05-17 15:01 | DRG 871 ==
LOC: M.ERS 11:35 → M.TBA-ER 13:14 → M.2W 13:14
PROVIDERS: Family Medicine; Internal Medicine; Internal Medicine Cardiovascular Disease; Internal Medicine Pulmonary Disease; Specialist; ADMIT Family Medicine
PROC: 5A09357 Assistance with Respiratory Ventilation, Less than 24 Consecutive Hours, Continuous Positive Airway Pressure (ICD-10-PCS; principal; 2018-05-09)
PROC: 5A09357 Assistance with Respiratory Ventilation, Less than 24 Consecutive Hours, Continuous Positive Airway Pressure (ICD-10-PCS; 2018-05-13)
PROC: 5A09357 Assistance with Respiratory Ventilation, Less than 24 Consecutive Hours, Continuous Positive Airway Pressure (ICD-10-PCS; 2018-05-15)
DX: A41.9 Sepsis, unspecified organism (principal); G93.41 Metabolic encephalopathy; I50.21 Acute systolic (congestive) heart failure; J96.21 Acute and chronic respiratory failure with hypoxia; J96.22 Acute and chronic respiratory failure with hypercapnia; N39.0 Urinary tract infection, site not specified; D61.818 Other pancytopenia; N17.9 Acute kidney failure, unspecified; J44.1 Chronic obstructive pulmonary disease with (acute) exacerbation; I13.0 Hypertensive heart and chronic kidney disease with heart failure and stage 1 through stage 4 chronic kidney disease, or unspecified chronic kidney disease; I25.10 Atherosclerotic heart disease of native coronary artery without angina pectoris; E78.00 Pure hypercholesterolemia, unspecified; F32.9 Major depressive disorder, single episode, unspecified; I25.5 Ischemic cardiomyopathy; I27.20 Pulmonary hypertension, unspecified; I48.91 Unspecified atrial fibrillation; N18.3 Chronic kidney disease, stage 3 (moderate); F20.9 Schizophrenia, unspecified; J06.9 Acute upper respiratory infection, unspecified; D50.9 Iron deficiency anemia, unspecified; D69.6 Thrombocytopenia, unspecified; B95.2 Enterococcus as the cause of diseases classified elsewhere; F01.50 Vascular dementia, unspecified severity, without behavioral disturbance, psychotic disturbance, mood disturbance, and anxiety; Z95.5 Presence of coronary angioplasty implant and graft; Z90.49 Acquired absence of other specified parts of digestive tract; Z90.710 Acquired absence of both cervix and uterus; Z88.6 Allergy status to analgesic agent; Z88.1 Allergy status to other antibiotic agents; Z88.0 Allergy status to penicillin; Z88.8 Allergy status to other drugs, medicaments and biological substances; Z87.891 Personal history of nicotine dependence; Z82.49 Family history of ischemic heart disease and other diseases of the circulatory system; Z99.81 Dependence on supplemental oxygen; Z79.82 Long term (current) use of aspirin; Z79.899 Other long term (current) drug therapy